=== PATIENT | female | born 1945 | race Caucasian/White ===

== ENCOUNTER → 2017-02-02 | Outpatient (CLI) | payer MEDICARE, MEDICAID | LOC: OD 11:41 | PROVIDERS: ATTEND Student in an Organized Health Care Education/Training Program | DX: R07.81 Pleurodynia (principal) | CPT/HCPCS: 71020 ==

== ENCOUNTER → 2018-08-30 | Outpatient (CLI) | payer MEDICARE, MEDICAID ==
--- NOTE | 2018-08-30 12:11 | RADIOLOGY REPORT (SQ) ---
EXAM DESCRIPTION: CAROTID DOPPLER COMPLETED DATE/TIME: 08/30/2018 11:39 am REASON FOR STUDY: CAROTID BRUIT R09.89 OTH SYMPTOMS AND SIGNS INVOLVING THE CIRC AND RESP SY COMPARISON: None. TECHNIQUE: Grayscale ultrasound, Doppler velocity and spectra, and color Doppler images acquired of the extra-cranial carotid and vertebral arteries. Images stored on PACS. LIMITATIONS: None. FINDINGS: RIGHT CAROTID CCA Velocities: Within normal limits. ICA Velocities Peak systolic 1.02 m/s. End diastolic 0.27 m/s. Proximal ICA/CCA peak systolic ratio 1.0. Mild plaque formation in the bulb and proximal ICA. LEFT CAROTID CCA Velocities: Within normal limits. ICA Velocities Peak systolic 0.74 m/s. End diastolic 0.23 m/s. Proximal ICA/CCA peak systolic ratio 1.0. Mild plaque formation bulb and proximal ICA. VERTEBRAL ARTERIES: Antegrade flow. Normal waveforms. SUBCLAVIAN ARTERIES: No finding. OTHER: No other significant finding. IMPRESSION: NO HEMODYNAMICALLY SIGNIFICANT STENOSIS. COMMENT: Quality ID #195: Velocity criteria are extrapolated from the diameter data as defined by t he Society of Radiologists in Ultrasound Consensus Conference. Radiology 2003: 229; 340-346. TECHNICAL DOCUMENTATION: JOB ID: [id number] [employer]- All Rights Reserved Reading location - IP/workstation name: [email or web address]
== END ==
LOC: SP 10:54
PROVIDERS: ATTEND Student in an Organized Health Care Education/Training Program
DX: R09.89 Other specified symptoms and signs involving the circulatory and respiratory systems (principal)
CPT/HCPCS: 93880

== ENCOUNTER → 2018-11-25 | Outpatient (CLI) | payer MEDICARE, MEDICAID ==
--- NOTE | 2018-11-26 08:34 | RADIOLOGY REPORT (SQ) ---
EXAM DESCRIPTION: PET CT SKULL/THIGH COMPLETED DATE/TIME: 11/25/2018 8:44 pm REASON FOR STUDY: SOLITARY PULMONARY NODULE R91.1 SOLITARY PULMONARY NODULE COMPARISON: No previous RADIONUCLIDE AND DOSE: 10.4 mCi F18 FDG The route of agent administration: Intravenous FASTING BLOOD SUGAR: 111 mg/dl CONTRAST TYPE AND DOSE: No CT contrast given. TECHNIQUE: Blood glucose level was verified. Above dose of FDG was injected intravenously. 2-D seg mented attenuation correction images were obtained from the base of the skull to the midthighs. Nonc ontrast CT images were obtained for attenuation correction and fusion with emission images. CT image s were performed without oral or intravenous contrast and are not sensitive for parenchymal lesions. A series of overlapping emission PET images were obtained. Images reviewed and manipulated at [facility] work station by the radiologist. Images stored on PACS. LIMITATIONS: None. FINDINGS: HEAD AND NECK: No areas of abnormal metabolic activity in the soft tissues of the head and neck. CHEST: In the left upper lobe, a 1.1 x 0.9 cm spiculated nodule is present on axial image 72, with SLAUGHTER V 3.8. This is suspicious for malignancy. Multiple other sub solid subcentimeter lung nodules are present in the upper lobes bilaterally, non m etabolic. Precarinal non metabolic 1.3 x 0.9 cm lymph node axial image 74. ABDOMEN AND PELVIS: No areas of abnormal metabolic activity in the abdomen or pelvis. Expected physi ologic activity is present in the genitourinary system and bowel. PROXIMAL LOWER EXTREMITIES: No areas of abnormal metabolic activity in the soft tissues of the lower extremities. BONES: No abnormal metabolic activity in the visualized skeleton. ADDITIONAL CT FINDINGS: Atherosclerotic carotid bifurcation calcification. Spotty ground-glass opaci ty throughout both lungs with the ill-defined peripheral sub solid subcentimeter nodules in the bilat eral upper lobes, question bronchiolitis. OTHER: Liver background activity 2.8 SUV. Blood pool background activity 2.1 SUV IMPRESSION: Spiculated 1.1 x 0.9 cm nodule in the left upper lobe, with SUV 3.8, worrisome for darleen saul. TECHNICAL DOCUMENTATION: JOB ID: [id number] [employer]- All Rights Reserved Reading location - IP/workstation name: [email or web address]
== END ==
LOC: RAD 15:20
PROVIDERS: ATTEND Internal Medicine Critical Care Medicine
DX: R91.1 Solitary pulmonary nodule (principal)
CPT/HCPCS: 78815; A9552

== ENCOUNTER → 2019-01-04 | Outpatient (CLI) | payer MEDICARE, MEDICAID ==
--- NOTE | 2019-01-04 15:06 | RADIOLOGY REPORT (SQ) ---
EXAM DESCRIPTION: MRI HEAD COMBO COMPLETED DATE/TIME: 01/04/2019 1:57 pm REASON FOR STUDY: LUNG CA (C34.12) C34.12 MALIGNANT NEOPLASM OF UPPER LOBE, LEFT BRONCHUS OR DORY COMPARISON: None. TECHNIQUE: Multiplanar imaging includes noncontrasted T1, T2, FLAIR, and Diffusion with ADC map seq uences. Contrast enhanced T1 images. Images stored on PACS. CONTRAST TYPE AND DOSE: 15 mL Dotarem. RENAL FUNCTION: Not indicated. ACR Type II contrast agent associated with few, if any, unconfounded cases of NSF LIMITATIONS: None. FINDINGS: ANATOMY: No anomalies. Normal vascular flow voids. Pituitary fossa normal. CSF SPACES: Normal size and contour. No hemorrhage. CEREBRUM: A few high-signal intensity lesions scattered throughout the white matter on FLAIR imaging with distribution suggesting chronic microvascular ischemic change. Sulci and gyri normal in size and contour. No evidence of hemorrhage, mass or extraaxial fluid collection. No enhancing lesions. POSTERIOR FOSSA: No signal alteration. No hemorrhage. No edema, masses or mass effect. Internal audit ory canals, cerebello-pontine angles, mastoids normal. DIFFUSION: Negative for acute or subacute infarction. ORBITS: No masses. Globes normal. PARANASAL SINUSES: No fluid levels. Mucosa normal. OTHER: No other significant finding. IMPRESSION: NO ENHANCING LESIONS. MINIMAL MICROVASCULAR ISCHEMIC CHANGE. OTHERWISE NORMAL STUDY. EVIDENCE OF ACUTE STROKE: NO. TECHNICAL DOCUMENTATION: JOB ID: [id number]- All Rights Reserved Reading location - IP/workstation name: [email or web address]
== END ==
LOC: RAD 12:54
PROVIDERS: ATTEND Internal Medicine
DX: C34.12 Malignant neoplasm of upper lobe, left bronchus or lung (principal)
CPT/HCPCS: 70553; A9576

== ENCOUNTER 2019-01-10 07:05 | Day surgery (SDC) | payer MEDICARE, MEDICAID ==
[~2019-01-10 07:05] MED LIST: ACETAMINOPHEN 325 MG TABLET PO PRN; CEFAZOLIN 1 GM/D5W RTU 1 GM/50 ML RTUPB IV PRN
[2019-01-10] MEDS ORDERED: LIDOCAINE 0.5% INJ-PF (5 MG/ML) 50 ML SDV ONE (08:06)
[2019-01-10] MEDS ORDERED: BACITRACIN INJ 50,000 UNIT VIAL ONE (08:07)
[2019-01-10 08:18] LABS: HEMATOCRIT 38.8 % (36.0-47.0); HEMOGLOBIN 13.1 g/dL (12.0-15.5); MEAN CORPUSCULAR HEMOGLOBIN 30.7 pg (27.0-33.4); MEAN CORPUSCULAR HGB CONC 33.6 g/dL (32.0-36.0); MEAN CORPUSCULAR VOLUME 91 fl (80-97); PLATELET COUNT 197 10^3/uL (150-450); RED BLOOD COUNT 4.25 10^6/uL (3.72-5.28); RED CELL DISTRIBUTION WIDTH 14.8 % (11.5-14.0); WHITE BLOOD COUNT 9.9 10^3/uL (4.0-10.5)
[2019-01-10 08:59] LABS: ALANINE AMINOTRANSFERASE 21 U/L (9-52); ALBUMIN 3.5 g/dL (3.5-5.0); ALKALINE PHOSPHATASE 100 U/L (38-126); ANION GAP 5 (5-19); ASPARTATE AMINO TRANSFERASE 24 U/L (14-36); BILIRUBIN,DIRECT 0.3 mg/dL (0.0-0.4); BILIRUBIN,TOTAL 0.4 mg/dL (0.2-1.3); BLOOD UREA NITROGEN 14 mg/dL (7-20); CALCIUM 9.5 mg/dL (8.4-10.2); CARBON DIOXIDE 30 mmol/L (22-30); CHLORIDE 107 mmol/L (98-107); GLUCOSE 87 mg/dL (75-110); POTASSIUM 3.7 mmol/L (3.6-5.0); SODIUM 141.5 mmol/L (137-145); TOTAL PROTEIN 7.1 g/dL (6.3-8.2)
[2019-01-10] MEDS ORDERED: ALBUTEROL SULFATE 0.083% NEB 2.5 MG/3 ML AMPUL NEB ONE (09:42)
--- NOTE | 2019-01-10 10:55 | RADIOLOGY REPORT (SQ) ---
EXAM DESCRIPTION: CHEST SINGLE VIEW COMPLETED DATE/TIME: 01/10/2019 10:05 am REASON FOR STUDY: preop COMPARISON: PET-CT 11/25/2018 Two-view chest 09/20/2016 EXAM PARAMETERS: NUMBER OF VIEWS: One view. TECHNIQUE: Single frontal radiographic view of the chest acquired. RADIATION DOSE: NA LIMITATIONS: None. FINDINGS: LUNGS AND PLEURA: Post placement of radiotherapy treatment markers in the right and left u pper lobe since the prior chest film in 2015. Ill-defined left upper lobe nodule is similar compared to PET-CT 11/25/2018. No acute infiltrates. No pleural effusion or pneumothorax. MEDIASTINUM AND HILAR STRUCTURES: No masses. Contour normal. HEART AND VASCULAR STRUCTURES: Heart normal in size. Normal vasculature. BONES: No acute findings. HARDWARE: None in the chest. OTHER: No other significant finding. IMPRESSION: Unchanged left upper lobe nodule. Bilateral upper lobe radiotherapy treatment markers TECHNICAL DOCUMENTATION: JOB ID: [id number] [employer]- All Rights Reserved Reading location - IP/workstation name: [email or web address]
[2019-01-10] MEDS ORDERED: MIDAZOLAM 2 MG/2 ML INJ ONE ×2 (11:03→11:09)
[2019-01-10] MEDS ORDERED: FENTANYL CITRATE INJ/PF 100 MCG/2 ML AMPUL ONE (11:04)
[2019-01-10] MEDS ORDERED: CEFAZOLIN INJ 1 GM VIAL ONE (11:04)
--- NOTE | 2019-01-10 12:10 | Discharge Summary ---
Discharge Summary (SDC) - Discharge Final Diagnosis: Left lung carcinoma Date of Surgery: 01/10/19 Discharge Date: 01/10/19 Condition: Good Treatment or Instructions: Resume preoperative medication, diet, activity; take Tylenol or Motrin as needed pain. Referrals: NORMA VELEZ DO [Primary Care Provider] - Discharge Diet: As Tolerated Discharge Activity: Activity As Tolerated Home Care Assistance: None Needed Report the Following to Your Physician Immediately: Shortness of Breath, Increase in Pain, Fever over 101 Degrees
--- NOTE | 2019-01-10 12:14 | Operative Report ---
Operative Report DATE OF SURGERY: 01/10/19 PREOPERATIVE DIAGNOSIS: Left lung carcinoma POSTOPERATIVE DIAGNOSIS: Same OPERATION: 1. Ultrasound directed insertion of single-chamber Jifwgw-n-Pyqj catheter right subclavian position, with cannulation of the right internal jug ular vein. 2. Interpretation of intraoperative fluoroscopy SURGEON: ARLETTE FONTENOT ANESTHESIA: Moderate Sedation TISSUE REMOVED OR ALTERED: See below COMPLICATIONS: None ESTIMATED BLOOD LOSS: Unit INTRAOPERATIVE FINDINGS: See below PROCEDURE: Patient was taken from the ambulatory area to the cardiac catheterization lab where she is placed supine position arms tucked, right chest wall and neck prepped and draped sterile fashion. Surgical plan surgical timeout were conducted. Using ultrasonography real-time, the right internal jugular vein was identified, skin anesthetized 1% plain lidocaine, and a micro needle and wire were threaded into the right internal jugular vein. Physical site for placement of the port was chosen in the right subclavian position. The skin was anesthetized 1% plain lidocaine, 2 cm incision was made with a 15 blade, subcutaneous pocket large enough to accommodate a single chamber port was created. The catheter was then trimmed the appropriate length, tunneled between the 2 incisions, trimmed the appropriate length, attached to the port with the plastic retaining ring and the port tucked into the pocket. Under fluoroscopic guidance, the micro wire was switched over to a conventional 0.030 inch guidewire using the introducer sheath. The 9 [place] dilator and strip away sheath were threaded over the conventional guidewire, the guidewire and dilator removed, and the catheter free and threaded into the right internal jugular vein. The strip away sheath was removed leaving the catheter in good position by fluoroscopic analysis. There was no evidence of ectopy, and there is no kinking of the catheter at the subclavian position. The port was aspirated and flushed with heparinized saline using the Goff needle. Wounds closed with 3-0 Vicryl benzoin and Steri-Strips. Patient tolerated the procedure well and taken recovery area in stable condition. Discharge instructions provided to the patient for follow-up with [facility] in 1 to 2 weeks.
[2019-01-10 14:28] VITALS: BP 131/85
--- NOTE | 2019-01-10 15:32 | EKG REPORT ---
SEVERITY:- ABNORMAL ECG - SINUS RHYTHM SUPRAVENTRICULAR BIGEMINY INCOMPLETE RIGHT BUNDLE BRANCH BLOCK : Confirmed by: Veronika Mistry MD 10-Jan-2019 15:31:32
--- NOTE | 2019-01-10 16:23 | RADIOLOGY REPORT (SQ) ---
EXAM DESCRIPTION: PORTACATH INSERTION COMPLETED DATE/TIME: 01/10/2019 3:24 pm REASON FOR STUDY: C34.12 LEFT LUNG CA C34.12 MALIGNANT NEOPLASM OF UPPER LOBE, LEFT BRONCHUS OR DORY COMPARISON: None. FLUOROSCOPY TIME: Less than 1 second Spot images saved to PACS. TECHNIQUE: Intra-operative images acquired during surgical procedure to evaluate progress. NUMBER OF IMAGES: 1 LIMITATIONS: None. FINDINGS: Fluoroscopy was provided for intraoperative procedure. Please refer to the operative repo rt for further discussion. IMPRESSION: IMAGE(S) OBTAINED DURING PROCEDURE. COMMENT: Quality ID [id number]: Final reports for procedures using fluoroscopy that document radiation exp osure indices, or exposure time and number of fluorographic images (if radiation exposure indices are not available) Please consult full operative report of the attending physician for description of the procedure. TECHNICAL DOCUMENTATION: JOB ID: [id number] [employer]- All Rights Reserved Reading location - IP/workstation name: [email or web address]
== END 2019-01-10 13:30 | disposition home or self-care (01) ==
LOC: CCL 07:05
PROVIDERS: ATTEND Surgery
DX: C34.12 Malignant neoplasm of upper lobe, left bronchus or lung (principal); M10.9 Gout, unspecified; K50.90 Crohn's disease, unspecified, without complications; J43.9 Emphysema, unspecified; F17.210 Nicotine dependence, cigarettes, uncomplicated; Z85.828 Personal history of other malignant neoplasm of skin; Z79.899 Other long term (current) drug therapy; Z01.818 Encounter for other preprocedural examination
CPT/HCPCS: 36415; 83735; 85027; 80053; 36561; 76937; 77001; 71045; 93005; 93010; C1788; Q9967; J2250; J3490 ×2; J0690; J3010; A9270; J1644

== ENCOUNTER → 2019-02-21 | Outpatient (CLI) | payer MEDICARE, MEDICAID ==
--- NOTE | 2019-02-21 10:51 | RADIOLOGY REPORT (SQ) ---
EXAM DESCRIPTION: CT CHEST WITH; CT ABD/PELVIS WITH IV ONLY COMPLETED DATE/TIME: 02/21/2019 8:41 am REASON FOR STUDY: LUNG CA (C34.11) C34.11 MALIGNANT NEOPLASM OF UPPER LOBE, RIGHT BRONCHUS OR L COMPARISON: PET-CT 11/25/2018 CONTRAST TYPE AND DOSE: contrast/concentration: Isovue 350.00 mg/ml; Total Contrast Delivered: 85.0 ml; Total Saline Delivered: 69.0 ml RENAL FUNCTION: Creatinine 0.8 TECHNIQUE: CT scan of the chest performed using helical scanning technique with dynamic intravenous contrast injection. Images reviewed with lung, soft tissue and bone windows. Reconstructed coronal a nd sagittal MPR images reviewed. All images stored on PACS. CT scan of the abdomen and pelvis performed with intravenous and without oral contrastusing helical s meron technique with dynamic intravenous contrast injection. Images reviewed with lung, soft tissu e and bone windows. Reconstructed coronal and sagittal MPR images reviewed. Delayed images for eval uation of the urinary system also acquired and evaluated. All images stored on PACS. All CT scanners at this facility use dose modulation, iterative reconstruction, and/or weight based d osing when appropriate to reduce radiation dose to as low as reasonably achievable (ALARA). [facility]: Dose Right [facility]: CareDose [facility]: Dose Right [facility]: Teradose 4D [facility]: Smart Technologies RADIATION DOSE: CT Rad equipment meets quality standard of care and radiation dose reduction techniq ues were employed. CTDIvol: 6.0 - 10.0 mGy. DLP: 1145 mGy-cm. . LIMITATIONS: None. FINDINGS: CHEST: LUNGS AND PLEURA: In the superior segment left lower lobe, a 1.1 x 0.8 cm nodule is present with myranda cent radiotherapy treatment markers on axial image 42/123. This is unchanged from prior PET-CT 019. There are multiple other subcentimeter subpleural lung nodules scattered throughout the upper lobes, unchanged from 11/25/2018 PET-CT. These were non metabolic at that time. No pleural effusion. No pneumothorax. HILAR AND MEDIASTINAL STRUCTURES: No identified masses or abnormal nodes. Less than 6 mm short axis precarinal and left hilar lymph nodes are unchanged from 11/25/2018 and were non metabolic at that time HEART AND VASCULAR STRUCTURES: No aneurysm or dissection. No central pulmonary emboli. No pericardi al effusion. HARDWARE: Right permanent central line tip superior vena cava THYROID AND OTHER SOFT TISSUES: No masses. No adenopathy. BONES: No significant finding. OTHER: No other significant finding. ABDOMEN AND PELVIS: LIVER: Normal size. No masses. No dilated ducts. SPLEEN: Normal size. No focal lesions. PANCREAS: No masses. No significant calcifications. No adjacent inflammation or peripancreatic fluid collections. Pancreatic duct not dilated. GALLBLADDER: No identified stones by CT criteria. No inflammatory changes to suggest cholecystitis. ADRENAL GLANDS: No significant masses or asymmetry. RIGHT KIDNEY AND URETER: No solid masses. No significant calcification. No hydronephrosis or hydroure ter. LEFT KIDNEY AND URETER: No solid masses. No significant calcification. No hydronephrosis or hydrouret er. AORTA AND VESSELS: No aneurysm. No dissection. Renal arteries, SMA, celiac without stenosis. RETROPERITONEUM: No retroperitoneal adenopathy, hemorrhage or masses. BOWEL AND PERITONEAL CAVITY: No masses or inflammatory changes. No free fluid or peritoneal masses. No CT evidence of bowel obstruction. No free intraperitoneal air. A 3 cm diameter Meckel's divertic ulum is present along the distal ileum on coronal image 26. There is adjacent ileum wall thickening and luminal narrowing on coronal images 24-29, and sagittal reconstruction images 43-49. Chronic inf lammation adjacent to this diverticulum is suspected. There is no surrounding inflammatory change in the adjacent mesenteric fat. APPENDIX: Normal. ABDOMINAL WALL: No masses. No hernias. PELVIS: No mass or free fluid. Normal bladder. Normal size female pelvic organs. BONES: No significant or acute findings. OTHER: No other significant finding. IMPRESSION: Stable left superior segment lower lobe malignant lung nodule compared to PET-CT 9. Incidental finding of a distal small bowel 3 cm diameter diverticulum likely a Meckel's diverticulum with a short segment of thick walled inflamed adjacent small bowel. No CT evidence of bowel obstruct ion or adjacent abscess/inflammatory change NORMAL CT OF THE ABDOMEN AND PELVIS WITH ORAL AND INTRAVENOUS CONTRAST. TECHNICAL DOCUMENTATION: JOB ID: [id number] Quality ID # [id number]: Final reports with documentation of one or more dose reduction techniques (e.g., Au tomated exposure control, adjustment of the mA and/or kV according to patient size, use of iterative reconstruction technique) 2010 [employer]- All Rights Reserved Reading location - IP/workstation name: [email or web address]
== END ==
LOC: RAD 07:50
PROVIDERS: ATTEND Internal Medicine
DX: C34.11 Malignant neoplasm of upper lobe, right bronchus or lung (principal)
CPT/HCPCS: 71260; 74177; 82565

== ENCOUNTER 2019-03-19 10:35 | Observation (INO) | payer MEDICARE, MEDICAID ==
[2019-03-19] MEDS ORDERED: METHYLPREDNISOLONE INJ 125 MG/2 ML SDV IV ONE (11:08)
--- NOTE | 2019-03-19 11:11 | ER Document Report ---
ED General - General Chief Complaint: Foot Pain Stated Complaint: GENERAL WEAKNESS Time Seen by Provider: 03/19/19 10:46 Mode of Arrival: Medic Information source: Patient Notes: Patient is a 73-year-old female, patient of Dr. Miranda presented to the emergency department with bilateral foot pain as well as pain behind her right calf and knee. Patient reports she is currently undergoing chemotherapy for stage IV lung cancer. She states pain and swelling to her bilateral feet started . She also reports that she was having recurrent diarrhea from through Monday which has now resolved. Patient denies any nausea or vomiting. She reports that she has been unable to ambulate. She states she was supposed to have chemotherapy yesterday but she was unable to get out of bed, this was rescheduled for today at which point she was again unable to get out of bed so her oncologist told her to come to the emergency department. She denies any chest pain or shortness of breath. TRAVEL OUTSIDE OF THE [place] IN LAST 30 DAYS: No - Related Data Allergies/Adverse Reactions: prednisone Allergy (Severe, Verified 03/19/19 10:46) Shortness of Breath Sulfa (Sulfonamide Antibiotics) Adverse Reaction (Severe, Verified 03/19/19 10:46) pancreatitis Past Medical History - Social History Smoking Status: Current Every Day Smoker Chew tobacco use (# tins/day): No Frequency of alcohol use: None Drug Abuse: None Family History: Reviewed & Not Pertinent Patient has suicidal ideation: No Patient has homicidal ideation: No - Past Medical History Cardiac Medical History: Reports: Hx Hypertension Denies: Hx Coronary Artery Disease, Hx Heart Attack Pulmonary Medical History: Reports: Hx Bronchitis, Hx Pneumonia Denies: Hx Asthma, Hx COPD Neurological Medical History: Denies: Hx Cerebrovascular Accident, Hx Seizures Renal/ Medical History: Denies: Hx Peritoneal Dialysis Musculoskeletal Medical History: Reports Hx Arthritis Past Surgical History: Reports: Hx Abdominal Surgery - cosmetic. Denies: Hx Hysterectomy, Hx Pacemaker - Immunizations Hx Diphtheria, Pertussis, Tetanus Vaccination: No Physical Exam - Vital signs Vitals: Temp Pulse Resp BP Pulse Ox 97.8 F 99 18 142/75 H 95 03/19/19 10:36 03/19/19 10:36 03/19/19 10:36 03/19/19 10:36 03/19/19 10:36 - Notes Notes: PHYSICAL EXAMINATION: GENERAL: Well-appearing, well-nourished and in no acute distress. HEAD: Atraumatic, normocephalic. EYES: Pupils equal round and reactive to light, extraocular movements intact, sclera anicteric, conjunctiva are normal. ENT: Nares patent, oropharynx clear without exudates. Moist mucous membranes. NECK: Normal range of motion, supple without lymphadenopathy LUNGS: Breath sounds clear to auscultation bilaterally and equal. No wheezes rales or rhonchi. HEART: Regular rate and rhythm without murmurs ABDOMEN: Soft, nontender, nondistended abdomen. No guarding, no rebound. No masses appreciated. Musculoskeletal: Normal range of motion, no pitting or edema. No cyanosis. NEUROLOGICAL: Cranial nerves grossly intact. Normal speech. Normal sensory, motor exams PSYCH: Normal mood, normal affect. SKIN: Erythema and edema to right great toe and medial right foot. Erythema to left 2nd and 3rd digits of left foot. Course - Re-evaluation Re-evalutation: Spoke with patient's oncologist, Dr. miranda who recommends obtaining CBC, apprehensive and stool studies if indicated. Plan to admit patient for IV steroids for acute gout flare to her bilateral feet. - Vital Signs Vital signs: Temp Pulse Resp BP Pulse Ox 98 F 87 16 135/71 H 99 03/20/19 11:44 03/20/19 11:44 03/20/19 11:44 03/20/19 11:44 03/20/19 11:44 - Laboratory Result Diagrams: 03/19/19 12:25 03/20/19 06:35 Laboratory results interpreted by me: 03/19/19 03/19/19 12:25 12:25 RBC 3.33 L Hgb 10.2 L Hct 29.8 L RDW 16.0 H Potassium 3.3 L Alkaline Phosphatase 133 H Albumin 3.1 L Discharge - Discharge Clinical Impression: Acute gout Qualifiers: Gout site: foot Gout etiology: drug-induced Laterality: right Qualified Code(s): M10.271 - Drug-induced gout, right ankle and foot Condition: Stable Disposition: ADMITTED OBSERVATION Admitting Provider: Remigio (Hospitalist) Unit Admitted: Medical Floor
[2019-03-19] MEDS ORDERED: KETOROLAC TROMETHAMINE INJ/PF 30 MG/1 ML SDV IV ONE (11:54)
--- NOTE | 2019-03-19 12:46 | RADIOLOGY REPORT (SQ) ---
EXAM DESCRIPTION: VENOUS UNILATERAL LOWER COMPLETED DATE/TIME: 03/19/2019 12:25 pm REASON FOR STUDY: RLE pain behind knee, on chemo COMPARISON: None. TECHNIQUE: Dynamic and static harvey scale and color images acquired of the right leg venous system. S elected spectral images acquired with additional compression and augmentation maneuvers. The contrala teral common femoral vein and saphenofemoral junction were also imaged. Images stored on PACS. LIMITATIONS: None. FINDINGS: RIGHT COMMON FEMORAL: Normal phasicity, compression and augmentation. No visualized echogenic material on g ray scale. No defects on color images. FEMORAL: Normal compression and augmentation. No visualized echogenic material on harvey scale. No defe cts on color images. POPLITEAL: Normal compression, augmentation. No visualized echogenic material on harvey scale. No defec ts on color images. CALF VESSELS: Normal compression, augmentation. No visualized echogenic material on harvey scale. No de fects on color images. GSV and SSV: Normal compression, augmentation. No visualized echogenic material on harvey scale. No def ects on color images. ANY DEEP VENOUS INSUFFICIENCY: Not evaluated. ANY EVIDENCE OF POPLITEAL CYST: No. OTHER: No other significant finding. LEFT COMMON FEMORAL VEIN AND SAPHENOFEMORAL JUNCTION: Normal phasicity, compression and augmentation. No visualized echogenic material on harvey scale. No de fects on color images. IMPRESSION: NO EVIDENCE OF DVT OR SVT IN THE RIGHT LEG. TECHNICAL DOCUMENTATION: JOB ID: [id number] [employer]- All Rights Reserved Reading location - IP/workstation name: [email or web address]
[2019-03-19 12:50] LABS: HEMATOCRIT 29.8 % (36.0-47.0); HEMOGLOBIN 10.2 g/dL (12.0-15.5); MEAN CORPUSCULAR HEMOGLOBIN 30.7 pg (27.0-33.4); MEAN CORPUSCULAR HGB CONC 34.3 g/dL (32.0-36.0); MEAN CORPUSCULAR VOLUME 90 fl (80-97); PLATELET COUNT 420 10^3/uL (150-450); RED BLOOD COUNT 3.33 10^6/uL (3.72-5.28); WHITE BLOOD COUNT 10.5 10^3/uL (4.0-10.5)
[2019-03-19 13:20] LABS: ABSOLUTE MONOCYTES # (MANUAL) 0.4 10^3/uL (0.1-1.4); BAND NEUTROPHILS % (MANUAL) 3 % (3-5); BASOPHILS % (MANUAL) 0 % (0-2); EOSINOPHILS % (MANUAL) 1 % (0-6); LYMPHOCYTES % (MANUAL) 17 % (13-45); MONOCYTES % (MANUAL) 4 % (3-13); SEGMENTED NEUTROPHILS % (MAN) 73 % (42-78); TOTAL CELLS COUNTED 100
[2019-03-19 13:21] LABS: ANISOCYTOSIS SLIGHT; PLATELET COMMENT ADEQUATE; POLYCHROMASIA 1+; TOXIC GRANULATION SLIGHT
[2019-03-19 13:23] LABS: ALANINE AMINOTRANSFERASE 20 U/L (9-52); ALBUMIN 3.1 g/dL (3.5-5.0); ALKALINE PHOSPHATASE 133 U/L (38-126); ANION GAP 8 (5-19); ASPARTATE AMINO TRANSFERASE 21 U/L (14-36); BILIRUBIN,DIRECT 0.3 mg/dL (0.0-0.4); BILIRUBIN,TOTAL 0.4 mg/dL (0.2-1.3); BLOOD UREA NITROGEN 15 mg/dL (7-20); CARBON DIOXIDE 29 mmol/L (22-30); CHLORIDE 102 mmol/L (98-107); GLUCOSE 89 mg/dL (75-110); POTASSIUM 3.3 mmol/L (3.6-5.0); SODIUM 138.8 mmol/L (137-145); TOTAL PROTEIN 6.4 g/dL (6.3-8.2); URIC ACID 6.7 mg/dL (2.5-7.5)
[2019-03-19] MEDS ORDERED: ONDANSETRON 4 MG TAB.RAPDIS PO PRN (16:36)
--- NOTE | 2019-03-19 16:58 | PDOC H&P ---
History of Present Illness Admission Date/PCP: 03/19/19 15:31 NORMA VELEZ DO Patient complains of: bilateral foot pain History of Present Illness: ASHLEE MOLINA 73-year-old female, patient with a PMH of gout and stage IV Lung Ca (followed by Dr. Miranda) presented to the ED with bilateral foot pain as well as pain behind her right calf and knee. She states pain and swelling to her bilateral feet started . The patient reports that she has been unable to ambulate. She states she was supposed to have chemotherapy yesterday but she was unable to get out of bed, this was rescheduled for today at which point she was again unable to get out of bed so her oncologist told her to come to the ED. Upon arrival to the emergency department, vital signs and imaging (venous Doppler) are all WNL. Laboratory studies, including CBC, uric acid and CMP, are all relatively benign. Patient was given a dose of IV Solu-Medrol and admitted to the hospitalist service for an acute exacerbation of gout and intractable pain. Upon assessment, the patient is lying comfortably in bed on room air. She is alert and oriented x3, able to answer all questions appropriately. She endorses bilateral foot pain for the last 5 days. Upon assessment, there is an area of erythema on the right great toe and dorsal surface of the right foot. There is little to no redness on the left foot, although, the patient states she has significant pain on the plantar surface of her left foot. Past Medical History Cardiac Medical History: Reports: Hypertension Denies: Coronary Artery Disease, Myocardial Infarction Pulmonary Medical History: Reports: Bronchitis, Pneumonia Denies: Asthma, Chronic Obstructive Pulmonary Disease (COPD) Neurological Medical History: Denies: Seizures Malignancy Medical History: Reports: Lung Cancer Musculoskeltal Medical History: Reports: Arthritis, Gout Hematology: Denies: Anemia Past Surgical History Past Surgical History: Reports: None Social History Information Source: Patient Lives with: Family Smoking Status: Current Every Day Smoker Number of Years Smokin Frequency of Alcohol Use: Rare Hx Recreational Drug Use: No Drugs: None Hx Prescription Drug Abuse: No - Advance Directive Resuscitation Status: Full Code Family History Family History: Malignancy - MOTHER - LUNG CA. BROTHER - PROSTATE CA. SISTER - LUNG CA. SISTER - BREAST CA. Parental Family History Reviewed: Yes Children Family History Reviewed: Yes Sibling(s) Family History Reviewed.: Yes Medication/Allergy Home Medications: Cyclobenzaprine HCl [Flexeril 10 mg Tablet] 10 mg PO Q8 03/19/19 Furosemide [Lasix 40 mg Tablet] 40 mg PO DAILY 03/19/19 Levothyroxine Sodium [Synthroid] 175 mcg PO Q6AM 03/19/19 Allergies/Adverse Reactions: prednisone Allergy (Severe, Verified 03/19/19 10:46) Shortness of Breath Sulfa (Sulfonamide Antibiotics) Adverse Reaction (Severe, Verified 03/19/19 10:46) pancreatitis Review of Systems Constitutional: ABSENT: chills, fever(s), headache(s), weight gain, weight loss Eyes: ABSENT: visual disturbances Ears: ABSENT: hearing changes Cardiovascular: ABSENT: chest pain, dyspnea on exertion, edema, orthropnea, palpitations Respiratory: ABSENT: cough, hemoptysis Gastrointestinal: ABSENT: abdominal pain, constipation, diarrhea, hematemesis, hematochezia, nausea, vomiting Genitourinary: ABSENT: dysuria, hematuria Musculoskeletal: PRESENT: joint swelling Integumentary: ABSENT: rash, wounds Neurological: ABSENT: abnormal gait, abnormal speech, confusion, dizziness, focal weakness, syncope Psychiatric: ABSENT: anxiety, depression, homidical ideation, suicidal ideation Endocrine: ABSENT: cold intolerance, heat intolerance, polydipsia, polyuria Hematologic/Lymphatic: ABSENT: easy bleeding, easy bruising Physical Exam Vital Signs: Temp Pulse Resp BP Pulse Ox 98.4 F 99 18 142/75 H 95 03/19/19 12:56 03/19/19 10:36 03/19/19 10:36 03/19/19 10:36 03/19/19 10:36 Intake & Output 03/18/19 03/19/19 03/20/19 06:59 06:59 06:59 Weight 70.9 kg General appearance: PRESENT: no acute distress, morbidly obese Head exam: PRESENT: atraumatic, normocephalic Eye exam: PRESENT: conjunctiva pink, EOMI, PERRLA. ABSENT: scleral icterus Ear exam: PRESENT: normal external ear exam Mouth exam: PRESENT: moist, tongue midline Teeth exam: PRESENT: poor dentation Neck exam: PRESENT: full ROM. ABSENT: carotid bruit, JVD, lymphadenopathy, thyromegaly Respiratory exam: PRESENT: clear to auscultation pierre, symmetrical, unlabored. ABSENT: rales, rhonchi, wheezes Cardiovascular exam: PRESENT: RRR. ABSENT: diastolic murmur, rubs, systolic murmur Pulses: PRESENT: normal radial pulses, normal dorsalis pedis pul Vascular exam: PRESENT: normal capillary refill GI/Abdominal exam: PRESENT: normal bowel sounds, soft. ABSENT: distended, guarding, mass, organolmegaly, rebound, tenderness Rectal exam: PRESENT: deferred Extremities exam: PRESENT: joint swelling - DISTAL 1ST METATARSAL, tenderness - BILATERAL FEET. ABSENT: calf tenderness, clubbing, full ROM - DUE TO FOOT PAIN, pedal edema Musculoskeletal exam: ABSENT: ambulatory - DUE TO FOOT PAIN, full ROM - DUE TO PAIN Neurological exam: PRESENT: alert, awake, oriented to person, oriented to place, oriented to time, oriented to situation Psychiatric exam: PRESENT: appropriate affect, normal mood. ABSENT: homicidal ideation, suicidal ideation Skin exam: PRESENT: dry, intact, warm. ABSENT: cyanosis, rash Results Laboratory Results: 03/19/19 12:25 03/19/19 12:25 03/19/19 03/19/19 12:25 12:25 WBC 10.5 RBC 3.33 L Hgb 10.2 L Hct 29.8 L MCV 90 MCH 30.7 MCHC 34.3 RDW 16.0 H Plt Count 420 Seg Neutrophils % Not Reportable Lymphocytes % Not Reportable Monocytes % Not Reportable Eosinophils % Not Reportable Basophils % Not Reportable Absolute Neutrophils Not Reportable Absolute Lymphocytes Not Reportable Absolute Monocytes Not Reportable Absolute Eosinophils Not Reportable Absolute Basophils Not Reportable Sodium 138.8 Potassium 3.3 L Chloride 102 Carbon Dioxide 29 Anion Gap 8 BUN 15 Creatinine 0.79 Est GFR ( Amer) > 60 Est GFR (Non-Af Amer) > 60 Glucose 89 Uric Acid 6.7 Calcium 9.0 Total Bilirubin 0.4 AST 21 ALT 20 Alkaline Phosphatase 133 H Total Protein 6.4 Albumin 3.1 L Impressions: Venous Doppler Study 03/19/19 11:07 IMPRESSION: NO EVIDENCE OF DVT OR SVT IN THE RIGHT LEG. Status: Imported from PACS Assessment and Plan - Diagnosis (1) Acute gout Qualifiers: Gout site: foot Gout etiology: unspecified cause Is this a current diagnosis for this admission?: Yes Plan: Bilateral foot pain - R>L PMH Gout Characteristic erythema and mild swelling to right great toe, minimal erythema to left foot but patient endorses pain to the plantar surface Uric acid level WNL Endorses taking colchicine (not on home medication list) Will provide scheduled IV steroids and eventually transition to PO steroids PO Frederick PRN for pain IV morphine for severe pain (2) Lung cancer Is this a current diagnosis for this admission?: Yes Plan: [facility] Lung cancer, stage ?4? Followed by Dr. English Currently undergoing chemotherapy Management per their expertise - Time Time Spent with patient: 15-24 minutes Medications reviewed and adjusted accordingly: Yes Anticipated discharge: Home Within: within 24 hours, within 48 hours - Inpatient Certification Based on my medical assessment, after consideration of the patient's comorbidities, presenting symptoms, or acuity I expect that the services needed warrant INPATIENT care.: Yes I certify that my determination is in accordance with my understanding of Medicare's requirements for reasonable and necessary INPATIENT services [42 CFR 412.3e].: Yes Medical Necessity: Need for Pain Control, Risk of Complication if Not Cared For in Hospital
[2019-03-19] MEDS ORDERED: MORPHINE SULFATE 10 MG/ML INJ IV PRN (16:59)
[2019-03-19] MEDS ORDERED: HYDROCODONE/ACETAMINOPHEN 7.5-325 MG TABLET PO PRN (17:00)
[2019-03-19] MEDS: METHYLPREDNISOLONE INJ 125 MG/2 ML SDV IV SCH (17:33)
[2019-03-19] MEDS: CYCLOBENZAPRINE HCL 10 MG TABLET PO SCH (22:38)
[2019-03-20] MEDS: METHYLPREDNISOLONE INJ 125 MG/2 ML SDV IV SCH ×4 (02:12→17:16)
[2019-03-20] MEDS ORDERED: (PENDING PHARMACY ID) (Levothyroxine Sodium [Synthroid] 175 MCG) PO SCH (06:00)
[2019-03-20] MEDS: CYCLOBENZAPRINE HCL 10 MG TABLET PO SCH ×3 (06:36→22:15)
[2019-03-20] MEDS: LEVOTHYROXINE SODIUM 0.1 MG TABLET PO SCH (06:37)
[2019-03-20] MEDS: LEVOTHYROXINE SODIUM 0.075 MG TABLET PO SCH (06:37)
[2019-03-20 07:14] LABS: ALANINE AMINOTRANSFERASE 15 U/L (9-52); ALBUMIN 3.1 g/dL (3.5-5.0); ALKALINE PHOSPHATASE 125 U/L (38-126); ANION GAP 8 (5-19); ASPARTATE AMINO TRANSFERASE 16 U/L (14-36); BILIRUBIN,DIRECT 0.3 mg/dL (0.0-0.4); BILIRUBIN,TOTAL 0.3 mg/dL (0.2-1.3); BLOOD UREA NITROGEN 23 mg/dL (7-20); CALCIUM 9.2 mg/dL (8.4-10.2); CARBON DIOXIDE 29 mmol/L (22-30); CHLORIDE 102 mmol/L (98-107); GLUCOSE 171 mg/dL (75-110); PHOSPHORUS 3.4 mg/dL (2.5-4.5); POTASSIUM 3.7 mmol/L (3.6-5.0); SODIUM 139.1 mmol/L (137-145); TOTAL PROTEIN 6.5 g/dL (6.3-8.2); URIC ACID 6.8 mg/dL (2.5-7.5)
--- NOTE | 2019-03-20 08:52 | PDOC CONSULTATION ---
Consultation Consult Date: 03/20/19 Attending physician:: DALE CHU Provider Consulted: RUBINA BALDERAS Consult reason:: Colitis, overwhelming arthritis, in the setting of immunotherapy and locally advanced lung cancer. History of Present Illness Admission Date/PCP: 03/19/19 15:31 NORMA VELEZ DO Patient complains of: Diarrhea, severe arthritis History of Present Illness: ASHLEE MOLINA is a 73 year old female with known history of early stage small cell lung cancer. We embarked on a treatment regimen with planned 4 cycles of carboplatin/etoposide/tecentriq, followed by consideration of CyberKnife radiation. She received her first 2 cycles that was generally well-tolerated except for weakness. She received cycle #3 about 3 weeks ago, about 1 week after that she presented with severe dehydration and weakness, and she was given 1 L of normal saline. About 24 hours after receiving normal saline she began having severe diarrhea going 7-8 times of watery diarrhea per day and that continued for about 5 days. She was given fluids again and hemoglobin is dropped so she was given 2 units of packed red blood cell. Ultimately she began having severe joint and muscle aches, and she has history of gout and she had a severe gouty flare with bilateral big toes red and swollen joints were swollen and angry as well. Ultimately over the weekend she notes that she became unable to get out of bed and give us a call on Monday. We suspected that she may have immunotherapy related colitis as well as flare of arthritis and we are planning on seeing her yesterday as an outpatient and start her on IV steroids along with oral steroids. Unfortunately, however, she was not able to get in so we recommended that she come to the ED. She called EMS to bring her to the ED. Over the last 24 hours she has had Solu-Medrol 60 mg every 8 per my direction. She feels much better today and she had she got up to the restroom and back. Past Medical History Cardiac Medical History: Reports: Hypertension Denies: Coronary Artery Disease, Myocardial Infarction Pulmonary Medical History: Reports: Bronchitis, Pneumonia Denies: Asthma, Chronic Obstructive Pulmonary Disease (COPD) Neurological Medical History: Denies: Seizures Malignancy Medical History: Reports: Lung Cancer Musculoskeltal Medical History: Reports: Arthritis, Gout Hematology: Denies: Anemia Past Surgical History Past Surgical History: Reports: None Denies: Hysterectomy, Pacemaker Social History Information Source: Patient Lives with: Family Smoking Status: Current Every Day Smoker Number of Years Smokin Frequency of Alcohol Use: Rare Hx Recreational Drug Use: No Drugs: None Hx Prescription Drug Abuse: No - Advance Directive Resuscitation Status: Full Code Family History Family History: Malignancy - MOTHER - LUNG CA. BROTHER - PROSTATE CA. SISTER - LUNG CA. SISTER - BREAST CA. Parental Family History Reviewed: Yes Children Family History Reviewed: Yes Sibling(s) Family History Reviewed.: Yes Medication/Allergy Home Medications: Cyclobenzaprine HCl [Flexeril 10 mg Tablet] 10 mg PO Q8 03/19/19 Furosemide [Lasix 40 mg Tablet] 40 mg PO DAILY 03/19/19 Levothyroxine Sodium [Synthroid] 175 mcg PO Q6AM 03/19/19 Allergies/Adverse Reactions: prednisone Allergy (Severe, Verified 03/19/19 10:46) Shortness of Breath Sulfa (Sulfonamide Antibiotics) Adverse Reaction (Severe, Verified 03/19/19 10:46) pancreatitis Review of Systems Constitutional: ABSENT: chills, fever(s), headache(s), weight gain, weight loss Eyes: ABSENT: visual disturbances Ears: ABSENT: hearing changes Cardiovascular: ABSENT: chest pain, dyspnea on exertion, edema, orthropnea, palpitations Respiratory: ABSENT: cough, hemoptysis Gastrointestinal: ABSENT: abdominal pain, constipation, diarrhea, hematemesis, hematochezia, nausea, vomiting Genitourinary: ABSENT: dysuria, hematuria Musculoskeletal: ABSENT: joint swelling Integumentary: ABSENT: rash, wounds Neurological: ABSENT: abnormal gait, abnormal speech, confusion, dizziness, focal weakness, syncope Psychiatric: ABSENT: anxiety, depression, homidical ideation, suicidal ideation Endocrine: ABSENT: cold intolerance, heat intolerance, polydipsia, polyuria Hematologic/Lymphatic: ABSENT: easy bleeding, easy bruising Physical Exam Vital Signs: Temp Pulse Resp BP Pulse Ox 97.9 F 84 16 139/74 H 99 03/20/19 07:14 03/20/19 07:14 03/20/19 07:14 03/20/19 07:14 03/20/19 07:14 Intake & Output 03/19/19 03/20/19 03/21/19 06:59 06:59 06:59 Intake Total 450 Output Total 500 Balance -50 Weight 72.121 kg General appearance: PRESENT: no acute distress, well-developed, well-nourished Head exam: PRESENT: atraumatic, normocephalic Eye exam: PRESENT: conjunctiva pink, EOMI, PERRLA. ABSENT: scleral icterus Ear exam: PRESENT: normal external ear exam Mouth exam: PRESENT: moist, tongue midline Neck exam: ABSENT: carotid bruit, JVD, lymphadenopathy, thyromegaly Respiratory exam: PRESENT: clear to auscultation pierre. ABSENT: rales, rhonchi, wheezes Cardiovascular exam: PRESENT: RRR. ABSENT: diastolic murmur, rubs, systolic murmur Pulses: PRESENT: normal dorsalis pedis pul Vascular exam: PRESENT: normal capillary refill GI/Abdominal exam: PRESENT: normal bowel sounds, soft. ABSENT: distended, guarding, mass, organolmegaly, rebound, tenderness Rectal exam: PRESENT: deferred Extremities exam: PRESENT: full ROM. ABSENT: calf tenderness, clubbing, pedal edema Neurological exam: PRESENT: alert, awake, oriented to person, oriented to place, oriented to time, oriented to situation, CN II-XII grossly intact. ABSENT: motor sensory deficit Psychiatric exam: PRESENT: appropriate affect, normal mood. ABSENT: homicidal ideation, suicidal ideation Skin exam: PRESENT: dry, intact, warm. ABSENT: cyanosis, rash Results Laboratory Results: 03/19/19 12:25 03/20/19 06:35 03/19/19 03/19/19 03/20/19 12:25 12:25 06:35 WBC 10.5 RBC 3.33 L Hgb 10.2 L Hct 29.8 L MCV 90 MCH 30.7 MCHC 34.3 RDW 16.0 H Plt Count 420 Seg Neutrophils % Not Reportable Lymphocytes % Not Reportable Monocytes % Not Reportable Eosinophils % Not Reportable Basophils % Not Reportable Absolute Neutrophils Not Reportable Absolute Lymphocytes Not Reportable Absolute Monocytes Not Reportable Absolute Eosinophils Not Reportable Absolute Basophils Not Reportable Sodium 138.8 Potassium 3.3 L Chloride 102 Carbon Dioxide 29 Anion Gap 8 BUN 15 Creatinine 0.79 Est GFR ( Amer) > 60 Est GFR (Non-Af Amer) > 60 Glucose 89 Uric Acid 6.7 Calcium 9.0 Phosphorus Magnesium Total Bilirubin 0.4 AST 21 ALT 20 Alkaline Phosphatase 133 H Total Protein 6.4 Albumin 3.1 L TSH 0.10 L 03/20/19 06:35 WBC RBC Hgb Hct MCV MCH MCHC RDW Plt Count Seg Neutrophils % Lymphocytes % Monocytes % Eosinophils % Basophils % Absolute Neutrophils Absolute Lymphocytes Absolute Monocytes Absolute Eosinophils Absolute Basophils Sodium 139.1 Potassium 3.7 Chloride 102 Carbon Dioxide 29 Anion Gap 8 BUN 23 H Creatinine 0.96 Est GFR ( Amer) > 60 Est GFR (Non-Af Amer) 57 L Glucose 171 H Uric Acid 6.8 Calcium 9.2 Phosphorus 3.4 Magnesium 1.5 L Total Bilirubin 0.3 AST 16 ALT 15 Alkaline Phosphatase 125 Total Protein 6.5 Albumin 3.1 L TSH Impressions: Venous Doppler Study 03/19/19 11:07 IMPRESSION: NO EVIDENCE OF DVT OR SVT IN THE RIGHT LEG. 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 Con't IV steroids x 24 more hours, if no further diarrhea and pt eating and taking po appropriately then will be sending home on oral steroids. Will follow closely (2) Lung cancer Qualifiers: Laterality: left Lung location: upper lobe of lung Qualified Code(s): C34.12 - Malignant neoplasm of upper lobe, left bronchus or lung Is this a current diagnosis for this admission?: Yes Plan: Lung ca, holding all chemo until pt fully tapered off steroids. Good response thus far (3) Acute gout Qualifiers: Gout site: foot Gout etiology: drug-induced Laterality: right Qualified Code(s): M10.271 - Drug-induced gout, right ankle and foot Is this a current diagnosis for this admission?: Yes Plan: B/L dx related to ImmunoRx flaring the gout, cont steroids as above. - Time Time Spent: Greater than 70 Minutes
[2019-03-20] MEDS ORDERED: MAGNESIUM SULFATE/D5W 1 GM/100 ML RTUPB IV ONE (09:00)
[2019-03-20] MEDS: NORMAL SALINE 1000 ML 1,000 ML IV PRN ×2 (09:27→22:21)
[2019-03-20] MEDS: ENOXAPARIN SODIUM INJ 40 MG/0.4 ML DISP.SYRIN SUBCUT SCH (09:28)
[2019-03-20] MEDS: FUROSEMIDE 40 MG TABLET PO SCH (11:28)
--- NOTE | 2019-03-20 15:49 | PDOC PROGRESS REPORT ---
Subjective Progress Note for:: 03/20/19 Subjective:: ASHLEE MOLINA 73-year-old female, patient with a PMH of gout and stage IV Lung Ca (followed by Dr. Miranda) presented to the ED with bilateral foot pain. She is admitted to the hospitalist service for a gout attack. The patient was seen this morning on rounds. Erythema and pain has improved with both feet. Patient has been able to ambulate to the restroom. No episodes of diarrhea today. Discussed the patient's case with Dr. Watts. Will continue current treatment plan (scheduled IV steroids) for one more day, likely discharge home tomorrow. Reason For Visit: GOUT Physical Exam Vital Signs: Temp Pulse Resp BP Pulse Ox 98 F 87 16 135/71 H 99 03/20/19 11:44 03/20/19 11:44 03/20/19 11:44 03/20/19 11:44 03/20/19 11:44 Intake & Output 03/19/19 03/20/19 03/21/19 06:59 06:59 06:59 Intake Total 450 Output Total 500 Balance -50 Weight 72.121 kg General appearance: PRESENT: no acute distress, obese Head exam: PRESENT: atraumatic, normocephalic Eye exam: PRESENT: conjunctiva pink, EOMI, PERRLA. ABSENT: scleral icterus Ear exam: PRESENT: normal external ear exam Mouth exam: PRESENT: moist, tongue midline Teeth exam: PRESENT: poor dentation Neck exam: PRESENT: full ROM. ABSENT: carotid bruit, JVD, lymphadenopathy, thyromegaly Respiratory exam: PRESENT: symmetrical, unlabored. ABSENT: rales, rhonchi, wheezes Cardiovascular exam: PRESENT: RRR. ABSENT: diastolic murmur, rubs, systolic murmur Pulses: PRESENT: normal radial pulses, normal dorsalis pedis pul Vascular exam: PRESENT: normal capillary refill GI/Abdominal exam: PRESENT: normal bowel sounds, soft. ABSENT: distended, guarding, mass, organolmegaly, rebound, tenderness Rectal exam: PRESENT: deferred Extremities exam: PRESENT: full ROM, tenderness - very mild tenderness to the plantar surface of both feet. ABSENT: calf tenderness, clubbing, pedal edema Musculoskeletal exam: PRESENT: ambulatory, full ROM. ABSENT: deformity Neurological exam: PRESENT: alert, awake, oriented to person, oriented to place, oriented to time, oriented to situation Psychiatric exam: PRESENT: appropriate affect, normal mood Skin exam: PRESENT: dry, intact, warm. ABSENT: cyanosis, rash Results Laboratory Results: 03/19/19 12:25 03/20/19 06:35 03/20/19 03/20/19 06:35 06:35 Sodium 139.1 Potassium 3.7 Chloride 102 Carbon Dioxide 29 Anion Gap 8 BUN 23 H Creatinine 0.96 Est GFR ( Amer) > 60 Est GFR (Non-Af Amer) 57 L Glucose 171 H Uric Acid 6.8 Calcium 9.2 Phosphorus 3.4 Magnesium 1.5 L Total Bilirubin 0.3 AST 16 ALT 15 Alkaline Phosphatase 125 Total Protein 6.5 Albumin 3.1 L TSH 0.10 L Impressions: Venous Doppler Study 03/19/19 11:07 IMPRESSION: NO EVIDENCE OF DVT OR SVT IN THE RIGHT LEG. Status: Imported from PACS Assessment and Plan - Diagnosis (1) Acute gout Qualifiers: Gout site: foot Gout etiology: drug-induced Laterality: right Qualified Code(s): M10.271 - Drug-induced gout, right ankle and foot Is this a current diagnosis for this admission?: Yes Plan: Improving Bilateral foot pain - R>L. Patient able to tolerate ambulation today. H Gout Characteristic erythema and mild swelling to right great toe, minimal erythema to left foot but patient endorses pain to the plantar surface Uric acid level WNL Endorses taking colchicine (not on home medication list) Continue scheduled IV steroids and eventually transition to PO steroids PO Home PRN for pain IV morphine for severe pain (2) Lung cancer Qualifiers: Laterality: left Lung location: upper lobe of lung Qualified Code(s): C34.12 - Malignant neoplasm of upper lobe, left bronchus or lung Is this a current diagnosis for this admission?: Yes Plan: [facility] Lung cancer Followed by Dr. English Currently undergoing chemotherapy and immunotherapy Management per heme/onc expertise (3) Diarrhea Qualifiers: Diarrhea type: unspecified type Qualified Code(s): R19.7 - Diarrhea, unspe cified Is this a current diagnosis for this admission?: Yes Plan: Patient endorses experiencing watery diarrhea for approximately 1 week (follo wing 3rd cycle of immunotherapy and radiation) Denies abdominal pain Will treat inflammatory colitis (secondary to immunotherapy) with IV steroids. Will send home with PO steroid taper - Time Time Spent with patient: 15-24 minutes Medications reviewed and adjusted accordingly: Yes Anticipated discharge: Home Within: within 24 hours, within 48 hours - Inpatient Certification Based on my medical assessment, after consideration of the patient's comorbiditi es, presenting symptoms, or acuity I expect that the services needed warrant INPATIENT care.: Yes I certify that my determination is in accordance with my understanding of [facility]'s requirements for reasonable and necessary INPATIENT services [42 CFR 412.3e].: Yes Medical Necessity: Need for Pain Control, Risk of Complication if Not Cared For in Hospital
--- NOTE | 2019-03-20 15:50 | Progress Note Acknowledgement ---
Progress Note Acknowledgement Progess Note Acknowledgement: I, the undersigned member of the medical staff with appropriate privileges and with supervisory authority over [ VIOLETTE VILLEGAS ], a [facility] practice allied health professional, acknowledge that I have reviewed the progress notes entered on this patient, and in my professional judgment believe that the assessment made and/or any care evidenced was appropriate
[2019-03-21] MEDS: METHYLPREDNISOLONE INJ 125 MG/2 ML SDV IV SCH (01:00)
[2019-03-21] MEDS: CYCLOBENZAPRINE HCL 10 MG TABLET PO SCH ×2 (06:18→14:30)
[2019-03-21] MEDS: LEVOTHYROXINE SODIUM 0.1 MG TABLET PO SCH (06:18)
[2019-03-21] MEDS: LEVOTHYROXINE SODIUM 0.075 MG TABLET PO SCH (06:19)
[2019-03-21] MEDS ORDERED: PREDNISONE 20 MG TABLET PO ONE (09:00)
--- NOTE | 2019-03-21 09:05 | PDOC PROGRESS REPORT ---
Subjective Progress Note for:: 03/21/19 Subjective:: Patient feeling much better, feels ready to walk the [place]omon. Did note to hospitalist team that she has a "prednisone" allergy, said she felt short of breath after receiving that. She has been receiving methylprednisolone, which is very similar to that drug and not having any side effects of this. I believe she will be able to receive prednisone appropriately, probably is not a true allergy. We will give her a dose today to ensure that there is no issues and then may be able to discharge home later today. Reason For Visit: GOUT Physical Exam Vital Signs: Temp Pulse Resp BP Pulse Ox 97.6 F 62 16 111/43 L 97 03/21/19 07:36 03/21/19 07:36 03/21/19 07:36 03/21/19 07:36 03/21/19 07:36 Intake & Output 03/20/19 03/21/19 03/22/19 06:59 06:59 06:59 Intake Total 450 968 Output Total 500 Balance -50 968 Weight 72.121 kg 72.5 kg General appearance: PRESENT: no acute distress, well-developed, well-nourished Head exam: PRESENT: atraumatic, normocephalic Eye exam: PRESENT: conjunctiva pink, EOMI, PERRLA. ABSENT: scleral icterus Ear exam: PRESENT: normal external ear exam Mouth exam: PRESENT: moist, tongue midline Neck exam: ABSENT: carotid bruit, JVD, lymphadenopathy, thyromegaly Respiratory exam: PRESENT: clear to auscultation pierre. ABSENT: rales, rhonchi, wheezes Cardiovascular exam: PRESENT: RRR. ABSENT: diastolic murmur, rubs, systolic murmur Pulses: PRESENT: normal dorsalis pedis pul Vascular exam: PRESENT: normal capillary refill GI/Abdominal exam: PRESENT: normal bowel sounds, soft. ABSENT: distended, guarding, mass, organolmegaly, rebound, tenderness Rectal exam: PRESENT: deferred Extremities exam: PRESENT: full ROM. ABSENT: calf tenderness, clubbing, pedal edema Neurological exam: PRESENT: alert, awake, oriented to person, oriented to place, oriented to time, oriented to situation, CN II-XII grossly intact. ABSENT: motor sensory deficit Psychiatric exam: PRESENT: appropriate affect, normal mood. ABSENT: homicidal ideation, suicidal ideation Skin exam: PRESENT: dry, intact, warm. ABSENT: cyanosis, rash Results Laboratory Results: 03/19/19 12:25 03/20/19 06:35 Impressions: Venous Doppler Study 03/19/19 11:07 IMPRESSION: NO EVIDENCE OF DVT OR SVT IN THE RIGHT LEG. Assessment & Plan - Diagnosis (1) Colitis Is this a current diagnosis for this admission?: Yes Plan: Secondary to immunotherapy, transition to oral steroids with prednisone, started 60 mg daily, give for 1 week then taper down to 40 mg for 1 week then down to 20 mg 1 week. Follow-up in office in 1 week. (2) Lung cancer Qualifiers: Laterality: left Lung location: upper lobe of lung Qualified Code(s): C34.12 - Malignant neoplasm of upper lobe, left bronchus or lung Is this a current diagnosis for this admission?: Yes Plan: Holding all therapy until steroids completely tapered off. We would like to rechallenge after that. (3) Acute gout Qualifiers: Gout site: foot Gout etiology: drug-induced Laterality: right Qualified Code(s): M10.271 - Drug-induced gout, right ankle and foot Is this a current diagnosis for this admission?: Yes Plan: Improved, hopefully will completely resolve, taper as above - Time Time Spent with patient: 35 or more minutes
[2019-03-21] MEDS: FUROSEMIDE 40 MG TABLET PO SCH (09:24)
[2019-03-21] MEDS: ENOXAPARIN SODIUM INJ 40 MG/0.4 ML DISP.SYRIN SUBCUT SCH (09:25)
[2019-03-21] MEDS: NORMAL SALINE 1000 ML 1,000 ML IV PRN (11:10)
[2019-03-21 14:59] VITALS: BP 124/70
== END 2019-03-21 15:19 | disposition home or self-care (01) ==
LOC: ER 10:35 → EH 15:31 → 2N 17:16
PROVIDERS: ADMIT Internal Medicine; ATTEND Internal Medicine
DX: M10.271 Drug-induced gout, right ankle and foot (principal); K52.9 Noninfective gastroenteritis and colitis, unspecified; M79.672 Pain in left foot; M79.671 Pain in right foot; C34.12 Malignant neoplasm of upper lobe, left bronchus or lung; I10 Essential (primary) hypertension; M19.90 Unspecified osteoarthritis, unspecified site; F17.200 Nicotine dependence, unspecified, uncomplicated; Z79.899 Other long term (current) drug therapy; Z88.2 Allergy status to sulfonamides; Z88.8 Allergy status to other drugs, medicaments and biological substances
CPT/HCPCS: 99285; 96374; 96375; 36415 ×2; 83735; 84100; 84443; 84550 ×2; 85025; 80053 ×2; 93971; A9270 ×11; J2930 ×3; J1885; J3475; J7030 ×2; J1642; G0378; J7512

== ENCOUNTER → 2019-05-07 | Outpatient (CLI) | payer MEDICARE, MEDICAID ==
--- NOTE | 2019-05-08 10:33 | RADIOLOGY REPORT (SQ) ---
EXAM DESCRIPTION: PET CT SKULL/THIGH COMPLETED DATE/TIME: 05/07/2019 10:44 pm REASON FOR STUDY: C34.12 MALIGNANT NEOPLASM OF UPPER LOBE, LEFT BRONCHUS OR LUNG C34.12 MALIGNANT N EOPLASM OF UPPER LOBE, LEFT BRONCHUS OR DORY COMPARISON: 11/25/2018 RADIONUCLIDE AND DOSE: 11.0 mCi F18 FDG The route of agent administration: Intravenous FASTING BLOOD SUGAR: 113 mg/dl CONTRAST TYPE AND DOSE: No CT contrast given. TECHNIQUE: Blood glucose level was verified. Above dose of FDG was injected intravenously. 2-D seg mented attenuation correction images were obtained from the base of the skull to the midthighs. Nonc ontrast CT images were obtained for attenuation correction and fusion with emission images. CT image s were performed without oral or intravenous contrast and are not sensitive for parenchymal lesions. A series of overlapping emission PET images were obtained. Images reviewed and manipulated at [facility] work station by the radiologist. Images stored on PACS. LIMITATIONS: None. FINDINGS: HEAD AND NECK: There is asymmetric activity within the left maxilla mandible likely relate d to dental hardware (max SUV 6.0). Mild asymmetric activity at the vocal folds (max SUV 4.8), likel y physiologic. No other areas of abnormal uptake within the head neck. CHEST: Previously-seen left upper lobe nodule has decreased in size with fiducial marker in place. T here is mild FDG activity (max SUV 2.3). Stable size of the right upper lobe area of ground-glass at tenuation with mild FDG uptake (max SUV 2.0) No new areas of abnormally increased FDG uptake within t he thorax. ABDOMEN AND PELVIS: No areas of abnormal metabolic activity in the abdomen or pelvis. Expected physi ologic activity is present in the genitourinary system and bowel. PROXIMAL LOWER EXTREMITIES: No areas of abnormal metabolic activity in the soft tissues of the lower extremities. BONES: No abnormal metabolic activity in the visualized skeleton. ADDITIONAL CT FINDINGS: Fiducial markers more inferiorly in within the right upper lobe, stable. Sta ble right upper lobe ground-glass nodule. No new new discrete nodules or masses. Scattered coronary atherosclerosis. Small lipomatosis hypertrophy of the interatrial septum No evidence of acute intra -abdominal/pelvic process. IMPRESSION: 1. Decreased size of previously seen left upper lobe nodule with mild FDG uptake (max S UV 2.3). Mild additional activity within the stable area of ground-glass attenuation within the righ t upper lobe (max SUV 2.0). No evidence of new uptake within the thorax. 2. Asymmetric increased activity within the left mandible and maxilla, likely related to dental hard rivera. Consider direct visualization. 3. Mild asymmetric activity within the left vocal cord without CT correlate, likely physiologic. TECHNICAL DOCUMENTATION: JOB ID: [id number] [employer]- All Rights Reserved Reading location - IP/workstation name: [email or web address]
== END ==
LOC: RAD 05-05 14:42
PROVIDERS: ATTEND Internal Medicine
DX: C34.12 Malignant neoplasm of upper lobe, left bronchus or lung (principal)
CPT/HCPCS: 78815; A9552

== ENCOUNTER → 2019-05-21 | Outpatient (CLI) | payer MEDICARE, MEDICAID ==
--- NOTE | 2019-05-21 12:10 | RADIOLOGY REPORT (SQ) ---
EXAM DESCRIPTION: MRI THORACIC SPINE COMBO COMPLETED DATE/TIME: 05/21/2019 8:33 am REASON FOR STUDY: LUNG CA (C34.12) C34.12 MALIGNANT NEOPLASM OF UPPER LOBE, LEFT BRONCHUS OR DORY COMPARISON: PET-CT 05/07/2019 CT chest abdomen pelvis 02/21/2019 TECHNIQUE: Sagittal and Axial imaging includes T1, T2, STIR and gradient echo sequences. T1 post ga dolinium sequences. CONTRAST TYPE AND DOSE: 15 mL Dotarem. RENAL FUNCTION: Not indicated. ACR Type II contrast agent associated with few, if any, unconfounded cases of NSF LIMITATIONS: None. FINDINGS: LOCALIZER: No worrisome findings. ALIGNMENT: Normal. VERTEBRAE AND BONE MARROW: Since the prior CT exam 02/21/2019, the patient has developed a subacute 50 % compression deformity of the T7 vertebral body. Marrow edema parallels the upper endplate. No ret ropulsion of bony fragments into the canal. This would be amenable to kyphoplasty for pain managemen t. A chronic appearing vertebra plana deformity at T4 is present with normal marrow signal. . This is unchanged from prior CT 02/21/2019. A 25% upper endplate compression of T12 is present with normal marrow signal, unchanged from prior CT 02/21/2019. No other thoracic compression deformities in the field of view. L1 and L2 are intact. HARDWARE: None in the spine. CORD: Normal in size and signal intensity. SOFT TISSUES: No soft tissue masses. THORACIC DISCS T1-T12: No significant spinal stenosis or exit foraminal stenosis. There is mild bila teral facet arthropathy throughout the thoracic spine LOWER CERVICAL: Incompletely imaged. No significant spinal stenosis or exit foraminal stenosis. UPPER LUMBAR: Incompletely imaged. No significant spinal stenosis or exit foraminal stenosis. ENHANCEMENT: Postcontrast, the upper half of the T7 vertebral body enhances, compatible with subacute osteoporotic compression deformity OTHER: No other significant finding. IMPRESSION: Subacute T7 compression deformity. This is amenable to kyphoplasty for pain management TECHNICAL DOCUMENTATION: JOB ID: [id number] [employer]- All Rights Reserved Reading location - IP/workstation name: [email or web address]
== END ==
LOC: RAD 07:16
PROVIDERS: ATTEND Internal Medicine
DX: C34.12 Malignant neoplasm of upper lobe, left bronchus or lung (principal)
CPT/HCPCS: 82565; 72157; A9576

== ENCOUNTER 2019-06-07 08:20 | Day surgery (SDC) | payer MEDICARE, MEDICAID ==
[2019-06-06 13:27] LABS: HEMATOCRIT 36.9 % (36.0-47.0); HEMOGLOBIN 12.3 g/dL (12.0-15.5); MEAN CORPUSCULAR HEMOGLOBIN 32.6 pg (27.0-33.4); MEAN CORPUSCULAR HGB CONC 33.2 g/dL (32.0-36.0); MEAN CORPUSCULAR VOLUME 98 fl (80-97); PLATELET COUNT 283 10^3/uL (150-450); RED BLOOD COUNT 3.76 10^6/uL (3.72-5.28); RED CELL DISTRIBUTION WIDTH 18.7 % (11.5-14.0); WHITE BLOOD COUNT 12.2 10^3/uL (4.0-10.5)
[2019-06-06 13:33] LABS: INTERNATIONAL RATION (INR) 1.01; PROTHROMBIN TIME 13.3 SEC (11.4-15.4)
[2019-06-06 13:34] LABS: APPEARANCE,URINE CLEAR; BILIRUBIN,URINE NEGATIVE (NEGATIVE); COLOR,URINE STRAW; GLUCOSE, URINE NEGATIVE (NEGATIVE); KETONES,URINE NEGATIVE (NEGATIVE); LEUKOCYTE ESTERASE,URINE NEGATIVE (NEGATIVE); NITRITE,URINE NEGATIVE (NEGATIVE); PROTEIN,URINE NEGATIVE (NEGATIVE); URINE SPECIFIC GRAVITY 1.006; UROBILINOGEN,URINE NEGATIVE mg/dL (<2.0)
[2019-06-06 13:34] LABS: PARTIAL THROMBOPLASTIN TIME 33.5 SEC (23.5-35.8)
[2019-06-06 13:35] LABS: ADD MANUAL MICROSCOPIC YES
[2019-06-06 13:51] LABS: BACTERIA,URINE TRACE /HPF; HYALINE CASTS, URINE RARE /LPF; WBC,URINE 0-1 /HPF
[~2019-06-07 08:20] MED LIST changes: -ACETAMINOPHEN 325 MG TABLET PO PRN; +CEFAZOLIN 1 GM/D5W RTU 1 GM/50 ML RTUPB IV ONE
--- NOTE | 2019-06-07 09:50 | RADIOLOGY REPORT (SQ) ---
EXAM DESCRIPTION: CHEST SINGLE VIEW COMPLETED DATE/TIME: 06/07/2019 9:37 am REASON FOR STUDY: PREOP COMPARISON: AP view of the chest from 01/10/2019. EXAM PARAMETERS: NUMBER OF VIEWS: One view. TECHNIQUE: Single frontal radiographic view of the chest acquired. RADIATION DOSE: NA LIMITATIONS: None. FINDINGS: LUNGS AND PLEURA: Unchanged metallic densities projecting within the right upper and supe rior segment of the left lower lobe. The left upper lobe nodule described on the prior radiograph is inconspicuous. There is no consolidation, pleural effusion or pneumothorax. MEDIASTINUM AND HILAR STRUCTURES: No mediastinal or hilar contour abnormality. HEART AND VASCULAR STRUCTURES: No cardiomegaly. The pulmonary vasculature is within normal limits. BONES: Unchanged chronic fracture deformity of the right 7th rib. HARDWARE: Intact single-lumen right IJ port. OTHER: No other finding. IMPRESSION: No acute cardiopulmonary process. The left upper lobe nodule described on the prior rad iograph is inconspicuous. TECHNICAL DOCUMENTATION: JOB ID: [id number] [employer]- All Rights Reserved Reading location - IP/workstation name: [email or web address]
[2019-06-07] MEDS ORDERED: LIDOCAINE 1% INJ-PF (10 MG/ML) 30 ML SDV ONE (10:05)
[2019-06-07 10:30] LABS: HEMATOCRIT 34.2 % (36.0-47.0); HEMOGLOBIN 11.4 g/dL (12.0-15.5); MEAN CORPUSCULAR HEMOGLOBIN 32.5 pg (27.0-33.4); MEAN CORPUSCULAR HGB CONC 33.3 g/dL (32.0-36.0); MEAN CORPUSCULAR VOLUME 98 fl (80-97); PLATELET COUNT 248 10^3/uL (150-450); RED CELL DISTRIBUTION WIDTH 18.9 % (11.5-14.0); WHITE BLOOD COUNT 10.2 10^3/uL (4.0-10.5)
== END 2019-06-07 10:00 | disposition home or self-care (01) ==
LOC: OROUT 08:20
PROVIDERS: ATTEND Pain Medicine Interventional Pain Medicine
DX: S22.06 Fracture of T7-T8 vertebra (principal); D68.9 Coagulation defect, unspecified; E03.9 Hypothyroidism, unspecified; X58.XXXA Exposure to other specified factors, initial encounter; M54.6 Pain in thoracic spine; C34.12 Malignant neoplasm of upper lobe, left bronchus or lung; Z79.899 Other long term (current) drug therapy; Z53.8 Procedure and treatment not carried out for other reasons
CPT/HCPCS: 36415 ×2; 85027 ×2; 85610; 85730; 81001; 71045; J0690; J3490

== ENCOUNTER 2019-08-31 09:18 | Emergency (ER) | payer MEDICARE, MEDICAID ==
--- NOTE | 2019-08-31 11:19 | ER Document Report ---
ED Medical Screen (RME) - General Chief Complaint: Back Pain Stated Complaint: BACK PAIN Time Seen by Provider: 08/31/19 11:14 Primary Care Provider: NORMA VELEZ DO [Primary Care Provider] - Follow up as needed Mode of Arrival: Wheelchair Information source: Patient Notes: 73-year-old female presented to ED for complaint of low back pain and right flank pain. She states that the pain started about a week and a half ago she was not doing anything when the pain started. She states it is slowly increased since then. She states she does not have a history of kidney stones but it is hurting in the flank area. Nausea vomiting or blood in the urine. We will get blood urine and a CT abdomen pelvis noncontrasted to evaluate this pain. I have greeted and performed a rapid initial assessment of this patient. A comprehensive ED assessment and evaluation of the patient, analysis of test results and completion of medical decision making process will be conducted by an additional ED providers. TRAVEL OUTSIDE OF THE [place] IN LAST 30 DAYS: No - Related Data Allergies/Adverse Reactions: prednisone Allergy (Severe, Verified 08/31/19 09:31) Shortness of Breath Sulfa (Sulfonamide Antibiotics) Adverse Reaction (Severe, Verified 08/31/19 09:31) pancreatitis Home Medications: flexeril. colace. lasix. colcrix. vit d. synthroid. percocet. zofran. phenergan Past Medical History - Social History Chew tobacco use (# tins/day): No Frequency of alcohol use: None Drug Abuse: None - Past Medical History Cardiac Medical History: Reports: Hx Hypertension Denies: Hx Coronary Artery Disease, Hx Heart Attack Pulmonary Medical History: Reports: Hx Bronchitis, Hx Pneumonia Denies: Hx Asthma, Hx COPD Neurological Medical History: Denies: Hx Cerebrovascular Accident, Hx Seizures Renal/ Medical History: Denies: Hx Peritoneal Dialysis Malignancy Medical History: Reports: Hx Lung Cancer Musculoskeltal Medical History: Reports Hx Arthritis, Reports Hx Gout Past Surgical History: Reports: Hx Abdominal Surgery - cosmetic. Denies: Hx Hysterectomy, Hx Pacemaker - Immunizations Hx Diphtheria, Pertussis, Tetanus Vaccination: No Physical Exam - Vital signs Vitals: Temp Pulse Resp BP Pulse Ox 97.7 F 86 18 136/58 H 93 08/31/19 09:23 08/31/19 09:23 08/31/19 09:23 08/31/19 09:23 08/31/19 09:23 Course - Vital Signs Vital signs: Temp Pulse Resp BP Pulse Ox 97.7 F 86 18 136/58 H 93 08/31/19 09:31 08/31/19 09:23 08/31/19 09:31 08/31/19 09:23 08/31/19 09:31 Doctor's Discharge - Discharge Referrals: NORMA VELEZ DO [Primary Care Provider] - Follow up as needed
[2019-08-31 12:16] LABS: ABSOLUTE BASOPHILS # (AUTO) 0.1 10^3/uL (0.0-0.2); ABSOLUTE EOSINOPHILS # (AUTO) 0.1 10^3/uL (0.0-0.6); ABSOLUTE LYMPHOCYTES (AUTO) 1.7 10^3/uL (0.5-4.7); ABSOLUTE MONOCYTES (AUTO) 0.6 10^3/uL (0.1-1.4); ABSOLUTE NEUT (AUTO) 7.5 10^3/uL (1.7-8.2); BASOPHILS % (AUTO) 0.7 % (0-2); EOSINOPHILS % (AUTO) 0.8 % (0-6); HEMATOCRIT 38.5 % (36.0-47.0); HEMOGLOBIN 12.9 g/dL (12.0-15.5); LYMPHOCYTES % (AUTO) 16.7 % (13-45); MEAN CORPUSCULAR HEMOGLOBIN 31.5 pg (27.0-33.4); MEAN CORPUSCULAR HGB CONC 33.6 g/dL (32.0-36.0); MEAN CORPUSCULAR VOLUME 94 fl (80-97); MONOCYTES % (AUTO) 6.1 % (3-13); PLATELET COUNT 264 10^3/uL (150-450); RED BLOOD COUNT 4.11 10^6/uL (3.72-5.28); RED CELL DISTRIBUTION WIDTH 16.6 % (11.5-14.0); SEGMENTED NEUTROPHILS % (AUTO) 75.7 % (42-78); TOTAL CELLS COUNTED % (AUTO) 100 %; WHITE BLOOD COUNT 9.9 10^3/uL (4.0-10.5)
[2019-08-31 12:21] LABS: APPEARANCE,URINE SLIGHTLY-CLOUDY; BILIRUBIN,URINE NEGATIVE (NEGATIVE); COLOR,URINE YELLOW; GLUCOSE, URINE NEGATIVE (NEGATIVE); KETONES,URINE NEGATIVE (NEGATIVE); PROTEIN,URINE 30 mg/dL (NEGATIVE); URINE SPECIFIC GRAVITY 1.015; UROBILINOGEN,URINE NEGATIVE mg/dL (<2.0)
[2019-08-31 12:35] LABS: ALBUMIN 3.6 g/dL (3.5-5.0); ALKALINE PHOSPHATASE 117 U/L (38-126); ANION GAP 7 (5-19); ASPARTATE AMINO TRANSFERASE 17 U/L (14-36); BILIRUBIN,DIRECT 0.2 mg/dL (0.0-0.4); BILIRUBIN,TOTAL 0.4 mg/dL (0.2-1.3); BLOOD UREA NITROGEN 13 mg/dL (7-20); CALCIUM 9.4 mg/dL (8.4-10.2); CARBON DIOXIDE 26 mmol/L (22-30); CHLORIDE 107 mmol/L (98-107); GLUCOSE 81 mg/dL (75-110); POTASSIUM 4.1 mmol/L (3.6-5.0)
--- NOTE | 2019-08-31 12:41 | RADIOLOGY REPORT (SQ) ---
EXAM DESCRIPTION: CT ABD/PELVIS NO ORAL OR IV COMPLETED DATE/TIME: 08/31/2019 12:14 pm REASON FOR STUDY: flank pain and low back pain COMPARISON: None. TECHNIQUE: CT scan of the abdomen and pelvis performed without intravenous or oral contrast. Images reviewed with lung, soft tissue, and bone windows. Reconstructed coronal and sagittal MPR images revi ewed. All images stored on PACS. All CT scanners at this facility use dose modulation, iterative reconstruction, and/or weight based d osing when appropriate to reduce radiation dose to as low as reasonably achievable (ALARA). [facility]: Dose Right [facility]: CareDose [facility]: Dose Right [facility]: Teradose 4D [facility]: Smart MyLife RADIATION DOSE: CT Rad equipment meets quality standard of care and radiation dose reduction techniq ues were employed. CTDIvol: 11.0 mGy. DLP: 484 mGy-cm.mGy. LIMITATIONS: None. FINDINGS: LOWER CHEST: No significant findings. No nodules or infiltrates. NON-CONTRASTED LIVER, SPLEEN, ADRENALS: Evaluation limited by lack of IV contrast. No identified sign ificant masses. PANCREAS: No masses. No peripancreatic inflammatory changes. GALLBLADDER: No identified stones by CT criteria. No inflammatory changes to suggest cholecystitis. RIGHT KIDNEY AND URETER: No suspicious masses. Assessment limited by lack of IV contrast. 1 mm ston e lower pole. No hydronephrosis or hydroureter. LEFT KIDNEY AND URETER: No suspicious masses. Assessment limited by lack of IV contrast. No signifi cant calcifications. No hydronephrosis or hydroureter. AORTA AND RETROPERITONEUM: No aneurysm. No retroperitoneal masses or adenopathy. BOWEL AND PERITONEAL CAVITY: No obvious masses or inflammatory changes. No free fluid. APPENDIX: Not visualized. PELVIS, BLADDER, AND ABDOMINAL WALL:No abnormal masses. No free fluid. Bladder normal. BONES: Old compression fractures. OTHER: No other significant finding. IMPRESSION: Small nonobstructing stone right kidney. COMMENT: Quality ID # [id number]: Final reports with documentation of one or more dose reduction techniques (e.g., Automated exposure control, adjustment of the mA and/or kV according to patient size, use of iterative reconstruction technique) TECHNICAL DOCUMENTATION: JOB ID: [id number] [employer]- All Rights Reserved Reading location - IP/workstation name: [email or web address]
[2019-08-31] MEDS ORDERED: HYDROMORPHONE HCL INJ/PF 2 MG/ML AMPULE IV ONE ×2 (12:48→15:50)
[2019-08-31] MEDS ORDERED: DIAZEPAM INJ 10 MG/2 ML DISP.SYRIN IV ONE (12:48)
[2019-08-31] MEDS ORDERED: ONDANSETRON HCL INJ/PF 4 MG/2 ML SDV IV ONE (12:49)
--- NOTE | 2019-08-31 12:50 | ER Document Report ---
Entered by ADELA BENNETT SCRIBE 08/31/19 1234 Acting as scribe for:GAMALIEL POE IV, MD ED Neck/Back Problem - General Chief Complaint: Back Pain Stated Complaint: BACK PAIN Time Seen by Provider: 08/31/19 11:14 Primary Care Provider: NORMA VELEZ DO [Primary Care Provider] - Follow up as needed Mode of Arrival: Wheelchair Information source: Patient Notes: This 73-year-old female patient presents to the emergency department today with complaints of acute on chronic low back pain. Patient has a known history of 3 thoracic spine compression fractures which is a little higher than her lumbar back pain is today. Patient states she has had increasing pain throughout the last 2 weeks, although it feels similar to previous compression fractures. Patient's pain is reproducible with movements and relieved by lying flat. P atient denies any new falls, trauma to this area, nausea, vomiting, chills, or fevers. TRAVEL OUTSIDE OF THE [place] IN LAST 30 DAYS: No - Related Data Allergies/Adverse Reactions: prednisone Allergy (Severe, Verified 08/31/19 09:31) Shortness of Breath Sulfa (Sulfonamide Antibiotics) Adverse Reaction (Severe, Verified 08/31/19 09:3 1) pancreatitis Home Medications: flexeril. colace. lasix. colcrix. vit d. synthroid. percocet. zofran. phenergan Past Medical History - General Information source: Patient - Social History Smoking Status: Never Smoker Cigarette use (# per day): No Chew tobacco use (# tins/day): No Frequency of alcohol use: None Drug Abuse: None Lives with: Family Family History: Reviewed & Not Pertinent Patient has suicidal ideation: No Patient has homicidal ideation: No - Past Medical History Cardiac Medical History: Reports: Hx Hypertension Pulmonary Medical History: Reports: Hx Bronchitis, Hx Pneumonia Malignancy Medical History: Reports: Hx Lung Cancer Musculoskeletal Medical History: Reports Hx Arthritis, Reports Hx Gout Traumatic Medical History: Reports: Other - History of lumbar spine compression fractures Past Surgical History: Reports: Hx Abdominal Surgery - cosmetic - Immunizations Hx Diphtheria, Pertussis, Tetanus Vaccination: No Review of Systems - Review of Systems Constitutional: No symptoms reported. denies: Chills, Fever EENT: No symptoms reported Cardiovascular: No symptoms reported Respiratory: No symptoms reported Gastrointestinal: No symptoms reported Genitourinary: No symptoms reported Female Genitourinary: No symptoms reported Musculoskeletal: See HPI, Back pain Skin: No symptoms reported Hematologic/Lymphatic: No symptoms reported Neurological/Psychological: No symptoms reported -: Yes All other systems reviewed and negative Physical Exam - Vital signs Vitals: Temp Pulse Resp BP Pulse Ox 97.7 F 86 18 136/58 H 93 08/31/19 09:23 08/31/19 09:23 08/31/19 09:23 08/31/19 09:23 08/31/19 09:23 - Notes Notes: Physical Exam: General: Alert, appears somewhat uncomfortable. HEENT: Normocephalic. Atraumatic. PERRL. Extraocular movements intact. Oropha rynx clear. Neck: Supple. Non-tender. Respiratory: No respiratory distress. Clear and equal breath sounds bilaterally. Cardiovascular: Regular rate and rhythm. Abdominal: Normal Inspection. Non-tender. No distension. Normal Bowel Sounds. Back: Lumbar paraspinal muscles are tender with palpation, some muscle spasm. Extremities: Moves all four extremities. Upper extremities: Normal inspection. Normal ROM. Lower extremities: Normal inspection. No edema. Normal ROM. Neurological: Normal cognition. AAOx4. Normal speech. Psychological: Normal affect. Normal Mood. Skin: Warm. Dry. Normal color. Course - Re-evaluation Re-evalutation: 08/31/19 16:03 Patient states she is feeling better. Results of ED MSE discussed with patient and patient's spouse. All questions were answered prior to patient discharge. Patient states she has "plenty" of Percocet 10/325 at home for pain. This MD will write a prescription for some Valium for her muscle spasm and I have instructed her not to use the Flexeril while she is using the Valium. - Vital Signs Vital signs: Temp Pulse Resp BP Pulse Ox 97.7 F 86 18 136/58 H 93 08/31/19 09:31 08/31/19 09:23 08/31/19 09:31 08/31/19 09:23 08/31/19 09:31 - Laboratory Result Diagrams: 08/31/19 12:00 08/31/19 12:00 Laboratory results interpreted by me: 08/31/19 08/31/19 12:00 12:00 RDW 16.6 H Urine Protein 30 H Leukocyte Esterase Rfl TRACE H - Diagnostic Test Radiology reviewed: Reports reviewed Discharge - Discharge Clinical Impression: Acute back pain Qualifiers: Back pain location: thoracic back pain Back pain laterality: unspecified Q ualified Code(s): M54.6 - Pain in thoracic spine Condition: Good Disposition: HOME, SELF-CARE Instructions: Muscle Strain ([facility]) Additional Instructions: Return to the Emergency Department without delay if any worse. HOME CARE INSTRUCTIONS & INFORMATION: Thank you for choosing us for your medical needs. We hope you're satisfied with the care you received. After you leave, you must properly care for your problem and, at the same time, observe its progress. Any condition can change. Some illnesses can change rapidly over hours or days. If your condition worsens, return to the Emergency Department or see your physician promptly. ABOUT YOUR X-RAYS AND EKG'S: If you had an EKG or X-rays taken, they have been read by the Emergency Physician. The X-rays and EKG's will also be read by a Radiologist or Subway Train Driver within 24 hours. If discrepancies are noted, you will be notified by telephone. Please be certain the ED has a correct telephone number & address where you can be reached. Also, realize that some fractures or abnormalities do not show up on initial X-rays. If your symptoms continue, see your physician. ABOUT YOUR LABORATORY TEST: If you had laboratory tests, the results have been reviewed by the Emergency Physician. Some test results (for example cultures) may not be available for several days. You will be contacted if any test result shows you need additional treatment. Please be certain the ED has a correct telephone number and address where you can be reached. ABOUT YOUR MEDICATIONS: You will receive instructions on how to take your medicine on the prescription label you receive. Additional information may be provided by the Pharmacy. If you have questions afterwards, call the ED for clarification or further instructions. Some prescribed medications may cause drowsiness. Do not perform tasks such as driving a car or operating machinery without consulting your Pharmacist. If you feel you need a refill of pain medication, your condition will need re-evaluation. Please do not call for a refill of any medication. ABOUT YOUR SIGNATURE: Signature of this document acknowledges to followin. Understanding that you received emergency treatment and that you may be released before al medical problems are known or treated. Please be certain the ED has a correct phone number & address where you can be reached. 2. Acknowledgement that you will arrange for follow-up care as recommended. 3. Authorization for the Emergency Physician to provide information to your follow-up Physician in order to maximize your care. AT ANY TIME, IF YOUR SYMPTOMS CHANGE SIGNIFICANTLY OR WORSEN OR YOU DEVELOP NEW SYMPTOMS, RETURN TO THE EMERGENCY DEPARTMENT IMMEDIATELY FOR RE-EVALUATION. OUR GOAL IS TO PROVIDE EXCELLENT MEDICAL CARE! WE HOPE THAT WE HAVE MET YOUR EXPECTATIONS DURING YOUR EMERGENCY DEPARTMENT VISIT AND THAT YOU FEEL YOU HAVE RECEIVED EXCELLENT CARE! Prescriptions: Diazepam [Valium 5 mg Tablet] 5 mg PO Q8HP PRN 5 Days #15 tablet PRN Reason: Muscle Spasms Referrals: NORMA VELEZ, [Primary Care Provider] - Follow up as needed I personally performed the services described in the documentation, reviewed and edited the documentation which was dictated to the scribe in my presence, and it accurately records my words and actions.
--- NOTE | 2019-08-31 14:57 | RADIOLOGY REPORT (SQ) ---
EXAM DESCRIPTION: L SPINE WHOLE COMPLETED DATE/TIME: 08/31/2019 2:44 pm REASON FOR STUDY: LOW BACK PAIN X 3 DAYS, H/O COMPRESSION FX COMPARISON: None. NUMBER OF VIEWS: Five views including obliques. TECHNIQUE: AP, lateral, oblique, and sacral radiographic images acquired of the lumbar spine. LIMITATIONS: None. FINDINGS: MINERALIZATION: Osteopenia. SEGMENTATION: Normal. No transitional anatomy. ALIGNMENT: Grade 1 spondylolisthesis L4-5. VERTEBRAE: Old compression fractures stable since CT 02/21/2019. DISCS: Multilevel disc space narrowing with osteophytes. POSTERIOR ELEMENTS: Pedicles and facets are intact. No pars defect or posterior arch defects. Facet arthropathy is present. HARDWARE: None in the spine. PARASPINAL SOFT TISSUES: Normal. PELVIS: Intact as visualized. No fractures or worrisome bone lesions. SI joints intact. OTHER: No other significant finding. IMPRESSION: Old compression fractures. TECHNICAL DOCUMENTATION: JOB ID: [id number] [employer]- All Rights Reserved Reading location - IP/workstation name: [email or web address]
[2019-08-31 16:50] VITALS: BP 130/61
== END 2019-08-31 16:49 | disposition home or self-care (01) ==
LOC: ER 09:18
DX: M54.6 Pain in thoracic spine (principal); M54.9 Dorsalgia, unspecified; M54.5 Low back pain; G89.29 Other chronic pain; Z79.899 Other long term (current) drug therapy
CPT/HCPCS: 96376; 99284; 96374; 96375; 36415; 85025; 80053; 81001; 72110; 74176; J3360; J1170; J2405; J1642

== ENCOUNTER → 2019-09-10 | Outpatient (CLI) | payer MEDICARE, MEDICAID ==
--- NOTE | 2019-09-11 10:19 | RADIOLOGY REPORT (SQ) ---
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 TECHNIQUE: Blood glucose level was verified. Above dose of FDG was injected intravenously. 2-D seg mented attenuation correction images were obtained from the base of the skull to the midthighs. Nonc ontrast CT images were obtained for attenuation correction and fusion with emission images. CT image s were performed without oral or intravenous contrast and are not sensitive for parenchymal lesions. A series of overlapping emission PET images were obtained. Images reviewed and manipulated at [facility] work station by the radiologist. Images stored on PACS. LIMITATIONS: None. FINDINGS: HEAD AND NECK: No areas of abnormal metabolic activity in the soft tissues of the head and neck. CHEST: Stable appearance of the previously seen left upper lobe residual nodular opacity and fiducial markers with minimal diffuse uptake (max SUV 1.6, previously 2.3). Grossly stable Ill-defined area of ground-glass attenuation about the in the right upper lobe fiducial markers with mild diffuse FDG uptake (max SUV 2.1, previously 2.0). Linear area of consolidation along the lingula, likely atelect atic change or scarring. Stable non hypermetabolic pretracheal lymph node measuring 9 mm in short ax is. Grossly stable area of increased activity about the right atrium with CT demonstrating low atten uation at the interatrial septum, findings likely related to lipomatous hypertrophy of the interatria l septum or possibly central venous catheter tip. ABDOMEN AND PELVIS: Background hepatic activity max SUV 3.5. No areas of abnormal metabolic activity in the abdomen or pelvis. Expected physiologic activity is present in the genitourinary system and bowel. PROXIMAL LOWER EXTREMITIES: No areas of abnormal metabolic activity in the soft tissues of the lower extremities. BONES: No abnormal metabolic activity in the visualized skeleton. ADDITIONAL CT FINDINGS: No evidence of acute process. IMPRESSION: 1. No significant uptake in previously seen left upper lobe nodule (max SUV 1.6). Ken sly stable ill-defined ground-glass right upper lobe nodule with mild diffuse uptake (max SUV 2.1, pr eviously 2.0). 2. Grossly unchanged uptake about the right atrium with CT demonstrating low attenuation at the int eratrial septum, findings likely related to lipomatous hypertrophy of the interatrial septum. 3. No other areas of new focal increased FDG uptake throughout the remainder of the scan. TECHNICAL DOCUMENTATION: JOB ID: [id number] [employer]- All Rights Reserved Reading location - IP/workstation name: [email or web address]
== END ==
LOC: RAD 08:39
PROVIDERS: ATTEND Internal Medicine
DX: C34.12 Malignant neoplasm of upper lobe, left bronchus or lung (principal)
CPT/HCPCS: 78815; A9552

== ENCOUNTER → 2019-12-18 | Outpatient (CLI) | payer MEDICARE, MEDICAID ==
--- NOTE | 2019-12-18 09:56 | RADIOLOGY REPORT (SQ) ---
EXAM DESCRIPTION: CT CHEST WITHOUT COMPLETED DATE/TIME: 12/18/2019 8:15 am REASON FOR STUDY: MALIGNANT NEOPLASM OF UPPER LOBE, LEFT BRONCHUS OR LUNG C34.12 MALIGNANT NEOPLASM OF UPPER LOBE, LEFT BRONCHUS OR DORY COMPARISON: 02/21/2019 TECHNIQUE: CT scan performed of the chest without intravenous contrast. Images reviewed with lung, soft tissue and bone windows. Reconstructed coronal and sagittal MPR images reviewed. All images st ored on PACS. All CT scanners at this facility use dose modulation, iterative reconstruction, and/or weight based d osing when appropriate to reduce radiation dose to as low as reasonably achievable (ALARA). [facility]: Dose Right [facility]: CareDose [facility]: Dose Right [facility]: Teradose 4D [facility]: Contact At Once! RADIATION DOSE: CT Rad equipment meets quality standard of care and radiation dose reduction techniq ues were employed. CTDIvol: 5.2 mGy. DLP: 214 mGy-cm. mGy. LIMITATIONS: No technical limitations. FINDINGS: LUNGS AND PLEURA: Stable bilateral pulmonary nodules. Radiotherapy markers. No new nodul es. No effusions. HILAR AND MEDIASTINAL STRUCTURES: No identified masses or abnormal nodes. No obvious aneurysm. HEART AND VASCULAR STRUCTURES: No aneurysm. No pericardial effusion. UPPER ABDOMEN: No significant findings. Limited exam. THYROID AND OTHER SOFT TISSUES: No masses. No adenopathy. BONES: Several compression fractures which appear chronic. HARDWARE: None in the chest. OTHER: No other significant findings. IMPRESSION: Stable pulmonary nodules. TECHNICAL DOCUMENTATION: JOB ID: [id number] Quality ID # [id number]: Final reports with documentation of one or more dose reduction techniques (e.g., Au tomated exposure control, adjustment of the mA and/or kV according to patient size, use of iterative reconstruction technique) 2010 [employer]- All Rights Reserved Reading location - IP/workstation name: [email or web address]
== END ==
LOC: RAD 08:03
PROVIDERS: ATTEND Internal Medicine
DX: C34.12 Malignant neoplasm of upper lobe, left bronchus or lung (principal)
CPT/HCPCS: 71250

== ENCOUNTER → 2020-03-23 | Outpatient (CLI) | payer MEDICARE, MEDICAID ==
--- NOTE | 2020-03-23 11:01 | RADIOLOGY REPORT (SQ) ---
EXAM DESCRIPTION: CT CHEST WITH IMAGES COMPLETED DATE/TIME: 03/23/2020 8:45 am REASON FOR STUDY: LUNG CANCER C34.12 MALIGNANT NEOPLASM OF UPPER LOBE, LEFT BRONCHUS OR DORY COMPARISON: 12/18/2019 TECHNIQUE: CT scan of the chest performed using helical scanning technique with dynamic intravenous contrast injection. Images reviewed with lung, soft tissue and bone windows. Reconstructed coronal and sagittal MPR and MIP images reviewed. All images stored on PACS. All CT scanners at this facility use dose modulation, iterative reconstruction, and/or weight based d osing when appropriate to reduce radiation dose to as low as reasonably achievable (ALARA). [facility]: Dose Right [facility]: CareDose [facility]: Dose Right [facility]: Teradose 4D [facility]: [employer] CONTRAST TYPE AND DOSE: contrast/concentration: Isovue 350.00 mmol/ml; Total Contrast Delivered: 80. 0 ml; Total Saline Delivered: 55.0 ml RENAL FUNCTION: Creatinine 1.0 RADIATION DOSE: CT Rad equipment meets quality standard of care and radiation dose reduction techniq ues were employed. CTDIvol: 10.0 mGy. DLP: 411 mGy-cm. . LIMITATIONS: None. FINDINGS: LUNGS AND PLEURA: There are small ground-glass opacities in both upper lobes. These are u nder 1 cm in size and unchanged from previous examination. These are well demonstrated on series 4, image 16 and image 18 in the left upper lobe. These are demonstrated on image 13 and 17 in the right upper lobe. There is a stable ground-glass opacity in the right upper lobe on image 32 adjacent to a metallic clip. Radiopaque markers in the low superior segment of the left lower lobe are stable in appearance with mild surrounding ground-glass opacities. There is a new ground-glass opacity demons trated right upper lobe peripherally on series 4, image 50. This measures 8.9 mm in diameter. New p atchy airspace disease is present in the lingula. HILAR AND MEDIASTINAL STRUCTURES: 12 mm right hilar lymph node is well demonstrated on series 2, imag e 24. This is better demonstrated on today's study due to intravenous contrast. HEART AND VASCULAR STRUCTURES: No aneurysm or dissection. No central pulmonary emboli. No pericardi al effusion. HARDWARE: [id number]-Z-[id number] is in place. UPPER ABDOMEN: No significant findings. Limited exam. THYROID AND OTHER SOFT TISSUES: No masses. No adenopathy. BONES: Stable in appearance with chronic compression deformities. OTHER: No other significant finding. IMPRESSION: 1. New ground-glass opacity demonstrated in the right upper lobe on series 4, image 50. This measures 8.9 mm in diameter. There is new patchy airspace disease in the lingula. These terrazas ges may represent infectious or inflammatory process. The opacity on the right is more suspicious in appearance and continued surveillance is recommended. 2. Numerous stable nodular opacities and ground-glass opacities in both upper lobes. Radiopaque mar kers are again noted bilaterally with surrounding ground-glass opacities. These are stable in appear ance as well. TECHNICAL DOCUMENTATION: JOB ID: [id number] Quality ID # [id number]: Final reports with documentation of one or more dose reduction techniques (e.g., Au tomated exposure control, adjustment of the mA and/or kV according to patient size, use of iterative reconstruction technique) 2010 [employer]- All Rights Reserved Reading location - IP/workstation name: [email or web address]
== END ==
LOC: RAD 08:18
PROVIDERS: ATTEND Internal Medicine
DX: C34.12 Malignant neoplasm of upper lobe, left bronchus or lung (principal)
CPT/HCPCS: 82565; 71260; J1642

== ENCOUNTER → 2020-06-26 | Outpatient (CLI) | payer MEDICARE, MEDICAID ==
--- NOTE | 2020-06-26 09:53 | RADIOLOGY REPORT (SQ) ---
EXAM DESCRIPTION: CT CHEST WITH IMAGES COMPLETED DATE/TIME: 06/26/2020 8:27 am REASON FOR STUDY: LUNG CA C34.12 MALIGNANT NEOPLASM OF UPPER LOBE, LEFT BRONCHUS OR DORY COMPARISON: 03/23/2020 TECHNIQUE: CT scan of the chest performed using helical scanning technique with dynamic intravenous contrast injection. Images reviewed with lung, soft tissue and bone windows. Reconstructed coronal and sagittal MPR and MIP images reviewed. All images stored on PACS. All CT scanners at this facility use dose modulation, iterative reconstruction, and/or weight based d osing when appropriate to reduce radiation dose to as low as reasonably achievable (ALARA). [facility]: Dose Right [facility]: CareDose [facility]: Dose Right [facility]: Teradose 4D [facility]: [employer] CONTRAST TYPE AND DOSE: contrast/concentration: Isovue 350.00 mmol/ml; Total Contrast Delivered: 80. 0 ml; Total Saline Delivered: 28.8 ml RENAL FUNCTION: Creatinine 0.9 RADIATION DOSE: CT Rad equipment meets quality standard of care and radiation dose reduction techniq ues were employed. CTDIvol: 5.8 mGy. DLP: 225 mGy-cm. . LIMITATIONS: None. FINDINGS: LUNGS AND PLEURA: Again seen are multiple small ground-glass opacities in both upper lobes . These are less than 1 cm and stable from prior exam. Again, these are demonstrated on series 4, i mage 19 15 and 17 within the left upper lobe and image 15 and 19 within the right upper lobe. Stable large ground-glass opacity adjacent to a metallic clip within the right upper lobe measuring 2.1 cm (series 4, image 35). Stable previously described right upper lobe 8.8 mm ground-glass nodule (serie s 4, image 48). Stable additional metallic clip within the apical left lower lobe and adjacent groun d-glass nodules. No new discrete nodules or masses. No airspace disease. No pleural effusion or pn eumothorax. HILAR AND MEDIASTINAL STRUCTURES: No identified masses or abnormal nodes. HEART AND VASCULAR STRUCTURES: Coronary atherosclerosis. No aneurysm. No dissection. No central pu lmonary embolus. HARDWARE: Right-sided chest port with catheter tip at SVC. Scattered pulmonary metallic clips. UPPER ABDOMEN: No acute findings. THYROID AND OTHER SOFT TISSUES: No masses. No adenopathy. BONES: No suspicious lytic or blastic osseous lesions. Stable multilevel thoracolumbar compression d eformities. OTHER: No other significant finding. IMPRESSION: 1. No evidence of acute cardiopulmonary process. 2. Stable multiple bilateral ground-glass nodular opacities as detailed above. No new discrete nodu les. No new definitive change. TECHNICAL DOCUMENTATION: JOB ID: [id number] Quality ID # [id number]: Final reports with documentation of one or more dose reduction techniques (e.g., Au tomated exposure control, adjustment of the mA and/or kV according to patient size, use of iterative reconstruction technique) 2010 [employer]- All Rights Reserved Reading location - IP/workstation name: [email or web address]-
== END ==
LOC: RAD 07:54
PROVIDERS: ATTEND Internal Medicine
DX: C34.12 Malignant neoplasm of upper lobe, left bronchus or lung (principal); I25.10 Atherosclerotic heart disease of native coronary artery without angina pectoris
CPT/HCPCS: 71260; 82565

== ENCOUNTER → 2020-10-01 | Outpatient (CLI) | payer MEDICARE, MEDICAID ==
--- NOTE | 2020-10-01 12:34 | RADIOLOGY REPORT (SQ) ---
EXAM DESCRIPTION: CT CHEST WITH IMAGES COMPLETED DATE/TIME: 10/01/2020 8:54 am REASON FOR STUDY: (C34.12)MALIGNANT NEOPLASM OF UPPER LOBE, LEFT BRONCHUS OR LUNG C34.12 MALIGNANT NEOPLASM OF UPPER LOBE, LEFT BRONCHUS OR DORY COMPARISON: 06/26/2020 TECHNIQUE: CT scan of the chest performed using helical scanning technique with dynamic intravenous contrast injection. Images reviewed with lung, soft tissue and bone windows. Reconstructed coronal and sagittal MPR and MIP images reviewed. All images stored on PACS. All CT scanners at this facility use dose modulation, iterative reconstruction, and/or weight based d osing when appropriate to reduce radiation dose to as low as reasonably achievable (ALARA). [facility]: Dose Right [facility]: CareDose [facility]: Dose Right [facility]: Teradose 4D [facility]: [employer] CONTRAST TYPE AND DOSE: contrast/concentration: Isovue 350.00 mmol/ml; Total Contrast Delivered: 80. 0 ml; Total Saline Delivered: 37.0 ml RENAL FUNCTION: Creatinine 1.1 RADIATION DOSE: CT Rad equipment meets quality standard of care and radiation dose reduction techniq ues were employed. CTDIvol: 6.4 mGy. DLP: 251 mGy-cm. . LIMITATIONS: None. FINDINGS: LUNGS AND PLEURA: Stable bilateral ground-glass opacities. Focal right middle lobe atelec tasis new from prior exam. Scattered parenchymal hardware is present which is unchanged. No new nod ules. No effusion. No pneumothorax. HILAR AND MEDIASTINAL STRUCTURES: No pathologic mediastinal or hilar adenopathy. HEART AND VASCULAR STRUCTURES: No aneurysm or dissection. No central pulmonary emboli. No pericardi al effusion. HARDWARE: None in the chest. UPPER ABDOMEN: No significant findings. Limited exam. THYROID AND OTHER SOFT TISSUES: No masses. No adenopathy. BONES: No significant finding. OTHER: No other significant finding. IMPRESSION: Stable CT of the chest with ill-defined bilateral ground-glass nodules. The largest is in the right upper lobe and measures approximately 2.2 cm. No significant changes from June 2020. TECHNICAL DOCUMENTATION: JOB ID: [id number] Quality ID # [id number]: Final reports with documentation of one or more dose reduction techniques (e.g., Au tomated exposure control, adjustment of the mA and/or kV according to patient size, use of iterative reconstruction technique) 2010 [employer]- All Rights Reserved Reading location - IP/workstation name: [email or web address]
== END ==
LOC: RAD 08:13
PROVIDERS: ATTEND Internal Medicine
DX: C34.12 Malignant neoplasm of upper lobe, left bronchus or lung (principal)
CPT/HCPCS: 71260; 82565